=== PATIENT | female | born 1955 | race Native Hawaiian/Other Pacific Islander ===

== ENCOUNTER 2017-09-12 10:26 | Inpatient (IN) | payer OTHER ==
[2017-09-12 10:38] VITALS: BMI 26.6
--- NOTE | 2017-09-12 11:01 | C.PDOC ---
History Of Present Illness Patient is a 62 y/o female who presents to the ED with complaints of persistent vertigo and dizziness for the last 6 days. Patient reports taking antivert this morning at home with no relief. Admits to similar episodes approximately 6 months ago that was relieved with antivert; admits to recent URI 1 month ago in which the patient finished a complete course of Cipro. Patient reports symptoms worsen with position change and notes experiencing associated nausea. No other physical complaints at this time. Time Seen by Provider: 09/12/17 10:44 Chief Complaint (Nursing): Dizziness/Lightheaded History Per: Patient History/Exam Limitations: no limitations Onset/Duration Of Symptoms: Hrs (this morning) Current Symptoms Are (Timing): Still Present Fall Associated With With Symptoms: No Recent travel outside of the [place]: No Additional History Per: Patient Past Medical History Reviewed: Historical Data, Nursing Documentation, Vital Signs Vital Signs: Last Vital Signs Temp 97.9 F 09/12/17 13:27 Pulse 60 09/12/17 13:27 Resp 16 09/12/17 13:27 BP 139/76 09/12/17 13:27 Pulse Ox 100 09/12/17 14:02 - Medical History PMH: Depression, HTN, Hypercholesterolemia, Hyperlipidemia Surgical History: No Surg Hx Family History: States: No Known Family Hx - Social History Hx Alcohol Use: No Hx Substance Use: No Review Of Systems Constitutional: Negative for: Fever, Chills Gastrointestinal: Positive for: Nausea Neurological: Positive for: Dizziness Physical Exam - Physical Exam Appears: Well, Non-toxic, No Acute Distress Skin: Normal Color, Warm, Dry Head: Atraumatic, Normacephalic Oral Mucosa: Moist Chest: Symmetrical Cardiovascular: Rhythm Regular, No Murmur Respiratory: Normal Breath Sounds, No Rales, No Rhonchi, No Wheezing Gastrointestinal/Abdominal: Soft, No Tenderness Neurological/Psych: Oriented x3, Normal Speech, Normal Cognition, Other (no focal deficits) ED Course And Treatment - Laboratory Results Result Diagrams: 09/12/17 11:47 09/12/17 11:47 ECG: Interpreted By Me ECG Rhythm: Sinus Rhythm ECG Interpretation: Normal Rate From EC O2 Sat by Pulse Oximetry: 100 (Room air) Pulse Ox Interpretation: Normal - CT Scan/US Head Other Rad Studies (CT/US): Interpreted By Me CT/US Interpretation: IMPRESSION: Mild chronic microvascular ischemic changes. If focal neurological deficit persists, consider MRI. Progress Note: Dr. Carpenter called at 1:[address] Carpenter second call out at 1:37 pm. - Physician Consult Information Time Consulting Physician Contacted: 13:55 Physician Contacted: Ran Carpenter Outcome Of Conversation: patient to be admitted under Dr. Carpenter. Progress - Re-Evaluation Re-evaluation Note: 09/12/17 13:14 CO PERSIST VERTIGO. +IMBALANCE W RIGHT HEAD TURN, UNABLE TO SIT UPRIGHT. NO FOCAL CEREB DEF. PT OFFERED KELLY MANEUVER BUT REFUSED. PT UNSAFE DC, UNIMPROVED W ANTIVERT AND BENZO. PENDING CALLBACK PMD ALSO CO HOOD. REQUESTING MOTRIN "LIKE I ALWAYS TAKE". REFUSING TYLENOL. 09/12/17 13:54 D/W DR CARPENTER WILL ADMIT CONSULT MARTI ALLRED AND LAVERNE. ADMIT TELE 09/12/17 14:02 - Data Reviewed Data Reviewed: Lab, Diagnostic imaging, EKG Medical Decision Making Medical Decision Making: Plan: * Heat CT * BMP * Valium * Zofran Disposition Counseled Patient/Family Regarding: Studies Performed, Diagnosis - Disposition Disposition: HOSPITALIZED Disposition Time: 14:01 Condition: STABLE Forms: [facility] (Montenegrin) - POA Present On Arrival: Falls Or Trauma - Clinical Impression Clinical Impression: Vertigo, Difficulty walking - Scribe Statement The provider has reviewed the documentation as recorded by the Scribe Elodia Maradiaga All medical record entries made by the Scribe were at my direction and personally dictated by me. I have reviewed the chart and agree that the record accurately reflects my personal performance of the history, physical exam, medical decision making, and the department course for this patient. I have also personally directed, reviewed, and agree with the discharge instructions and disposition. Decision To Admit - Pt Status Changed To: Hospital Disposition Of: Observation - . Bed Request Type: Telemetry Admitting Physician: Ran Carpenter Patient Diagnosis: Vertigo, Difficulty walking
[2017-09-12 11:50] LABS: BASO # 0.1 K/uL (0.0-0.2); EOS # 0.1 K/uL (0.0-0.7); EOS % 1.4 % (0.0-4.0); LYMPH # 2.9 K/uL (1.0-4.3); LYMPH % 34.5 % (20.0-40.0); MEAN CELL VOLUME 86.8 fL (81.0-99.0); MEAN CORPUSCULAR HEMOGLOBIN 28.4 pg (27.0-31.0); MEAN CORPUSCULAR HGB CONC 32.7 g/dL (33.0-37.0); MEAN PLATELET VOLUME 7.7 fL (7.2-11.7); MONO # 0.5 K/uL (0.0-0.8); MONO % 5.8 % (0.0-10.0); RED CELL DISTRIBUTION WIDTH 13.7 % (11.5-14.5); WHITE BLOOD COUNT 8.3 K/uL (4.8-10.8)
[2017-09-12 12:06] LABS: BLOOD UREA NITROGEN 14 mg/dL (7-17); CALCIUM 9.7 mg/dl (8.6-10.4); CARBON DIOXIDE 26 mmol/L (22-30); CHLORIDE 102 mmol/L (98-107); GFR AFRICAN-AMERICAN > 60; GLUCOSE,RANDOM 93 mg/dL (65-105); POTASSIUM 4.4 mmol/L (3.6-5.2); SODIUM 140 mmol/L (132-148)
--- NOTE | 2017-09-12 12:52 | CT ---
PROCEDURE: CT HEAD WITHOUT CONTRAST. HISTORY: VERTIGO COMPARISON: None available. TECHNIQUE: Axial computed tomography images were obtained through the head/brain without intravenous contrast. Radiation dose: Total exam DLP = 1042 mGy-cm. This CT exam was performed using one or more of the following dose reduction techniques: Automated exposure control, adjustment of the mA and/or kV according to patient size, and/or use of iterative reconstruction technique. FINDINGS: HEMORRHAGE: No intracranial hemorrhage. BRAIN: No mass effect or edema. Scattered focal lucencies in the subcortical and periventricular white matter suggestive for chronic microvascular ischemic change. VENTRICLES: Unremarkable. No hydrocephalus. CALVARIUM: Unremarkable. PARANASAL SINUSES: Unremarkable as visualized. No significant inflammatory changes. MASTOID AIR CELLS: Unremarkable as visualized. No inflammatory changes. OTHER FINDINGS: None. IMPRESSION: Mild chronic microvascular ischemic changes. If focal neurologic deficit persists, consider MRI.
--- NOTE | 2017-09-12 14:21 | RAD ---
PROCEDURE: CHEST RADIOGRAPH, 1 VIEW HISTORY: Medical clearance COMPARISON: None available. FINDINGS: LUNGS: No focal infiltrate or effusion. Small nodular density at the left lung base likely represents prominent nipple shadow. PLEURA: No pneumothorax or pleural fluid seen. CARDIOVASCULAR: Normal. OSSEOUS STRUCTURES: No significant abnormalities. VISUALIZED UPPER ABDOMEN: Normal. OTHER FINDINGS: None. IMPRESSION: No focal infiltrate or effusion. Small nodular density at the left lung base likely represents prominent nipple shadow.
--- NOTE | 2017-09-13 17:03 | CP.PCM.CON ---
History of Present Illness - History of Present Illness History of Present Illness: Mrs. Gupta is a 62-year-old woman with a past medical history of hypertension, smoking and dyslipidemia who states that about 6 months ago she had an episode of vertigo that responded to a few doses of meclizine. For the last 6 days, she has been vertiginous again, but this time her symptoms are not responding to meclizine and she states that her symptoms are worse when she turns her head to the right. Review of Systems - Review of Systems All systems: reviewed and no additional remarkable complaints except Past Patient History - Past Medical History & Family History Past Medical History?: Yes - Past Social History Smoking Status: Light Smoker < 10 Cigarettes Daily - CARDIAC Hx Cardiac Disorders: Yes Hx Hypercholesterolemia: Yes Hx Hypertension: Yes - PULMONARY Hx Respiratory Disorders: No - NEUROLOGICAL Hx Neurological Disorder: Yes Hx Dizziness: Yes Hx Vertigo: Yes - HEENT Hx HEENT Problems: No - RENAL Hx Chronic Kidney Disease: No - ENDOCRINE/METABOLIC Hx Endocrine Disorders: No - HEMATOLOGICAL/ONCOLOGICAL Hx Blood Disorders: No - INTEGUMENTARY Hx Dermatological Problems: No - MUSCULOSKELETAL/RHEUMATOLOGICAL Hx Musculoskeletal Disorders: No Hx Falls: No - GASTROINTESTINAL Hx Gastrointestinal Disorders: No - GENITOURINARY/GYNECOLOGICAL Hx Genitourinary Disorders: No - PSYCHIATRIC Hx Psychophysiologic Disorder: Yes Hx Depression: Yes Hx Substance Use: No - SURGICAL HISTORY Hx Surgeries: Yes Hx Section: Yes (X3) - ANESTHESIA Hx Anesthesia: Yes Hx Anesthesia Reactions: No Hx Malignant Hyperthermia: No Has any member of the family had a problem w/ anesthesia?: No Meds Allergies/Adverse Reactions: Allergies Allergy/AdvReac Type Severity Reaction Status Date / Time aspirin Allergy RASH Verified 09/12/17 10:38 tetracycline [From Sumycin] Allergy RASH Verified 09/12/17 10:38 Tetracyclines Allergy ANGIOEDEMA Verified 09/12/17 10:38 - Medications Medications: Current Medications Amlodipine Besylate (Norvasc) 10 mg PO DAILY [facility] Last Admin: 09/13/17 10:09 Dose: 10 mg Diazepam (Valium) 2 mg PO Q12 PRN PRN Reason: Dizziness Fenofibrate (Tricor) 48 mg PO QPM [facility] Home Med (Patient's Own Medication) 1 tab PO DAILY [facility] Last Admin: 09/13/17 10:09 Dose: 1 tab Lamotrigine (Lamictal) 100 mg PO 1900 [facility] Losartan Potassium (Cozaar) 100 mg PO DAILY [facility] Last Admin: 09/13/17 10:09 Dose: 100 mg Meclizine HCl (Antivert) 25 mg PO BID PRN PRN Reason: Dizziness Last Admin: 09/13/17 08:27 Dose: 25 mg Sertraline HCl (Zoloft) 100 mg PO 1900 [facility] Physical Exam - Constitutional Appears: Well - Head Exam Head Exam: ATRAUMATIC, NORMAL INSPECTION, NORMOCEPHALIC - Eye Exam Eye Exam: EOMI, Normal appearance, PERRL - ENT Exam ENT Exam: Mucous Membranes Moist, Normal Exam - Neck Exam Neck exam: Positive for: Normal Inspection - Respiratory Exam Respiratory Exam: Clear to Auscultation Bilateral, NORMAL BREATHING PATTERN - Cardiovascular Exam Cardiovascular Exam: REGULAR RHYTHM - GI/Abdominal Exam GI & Abdominal Exam: Normal Bowel Sounds, Soft. absent: Tenderness - Rectal Exam Rectal Exam: Deferred - Extremities Exam Extremities exam: Positive for: normal inspection - Back Exam Back exam: NORMAL INSPECTION - Neurological Exam Neurological exam: Abnormal Gait, Alert, CN II-XII Intact, Oriented x3, Reflexes Normal Additional comments: No nystagmus noted on lateral gaze. Nannette-Hallpike was positive when head was turned to the right. No ataxia was noted on FTN or HTS. Strength and sensation were symmetrical throughout. Reflexes were normal throughout. Plantar response was downgoing. - Psychiatric Exam Psychiatric exam: Normal Affect, Normal Mood - Skin Skin Exam: Dry, Intact, Normal Color, Warm Results - Vital Signs Recent Vital Signs: Last Vital Signs Temp 98.1 F 09/13/17 12:00 Pulse 60 09/13/17 14:35 Resp 14 09/13/17 14:35 BP 109/64 09/13/17 14:35 Pulse Ox 98 09/13/17 10:10 - Labs Result Diagrams: 09/12/17 11:47 09/12/17 11:47 - Imaging and Cardiology CT scan - head Status: Image reviewed by me, Report reviewed by me (No acute findings on CT head. ) Assessment & Plan (1) Vertigo Assessment and Plan: Based on the history and presentation, the patient likely has benign positional paroxysmal vertigo. However, posterior circualation ischemia or vertebro- basilar insufficiency should be ruled out. I recommend the followin. MRI of the brain and MRA of the head/neck without contrast 2. Telemetry 3. Valium 2 mg PO Q12 hours PRN vertigo 4. Aspirin 81 mg daily 5. Permissive hypertension (treat BP if higher than 180/100 mm Hg) 6. Fluids with NS at 100 mL/hr 7. PT/OT eval and VESTIBULAR REHAB 8. DVT Px 9. Check lipids, HbA1c, B12, Folate, TSH 10 Case management consult Thank you. Status: Acute Priority: High
[2017-09-14] MEDS ORDERED: Gadodiamide 287 MG/ML VIAL (15ML) IV ONE (09:55)
--- NOTE | 2017-09-14 11:13 | CP.PCM.PN ---
Subjective - Date & Time of Evaluation Date of Evaluation: 09/14/17 Time of Evaluation: 11:10 - Subjective Subjective: Ms. Gupta was seen and examined at the bedside. She is alert, oriented in all spheres. She claims of minimal headache 2/10, pressure-like, generalized, but with severe vertigo 8/10 with blurred vision. She denies any nausea or vomiting. There was no untoward events overnight. Objective - Vital Signs/Intake and Output Vital Signs (last 24 hours): Temp Pulse Resp BP Pulse Ox 98.0 F 60 16 112/70 100 09/14/17 06:00 09/14/17 08:22 09/14/17 06:00 09/14/17 06:00 09/14/17 06:00 - Medications Medications: Current Medications Amlodipine Besylate (Norvasc) 10 mg PO DAILY [facility] Last Admin: 09/13/17 10:09 Dose: 10 mg Diazepam (Valium) 2 mg PO Q12 PRN PRN Reason: Dizziness Fenofibrate (Tricor) 48 mg PO QPM [facility] Last Admin: 09/13/17 18:21 Dose: 48 mg Home Med (Patient's Own Medication) 1 tab PO DAILY [facility] Last Admin: 09/13/17 10:09 Dose: 1 tab Lamotrigine (Lamictal) 100 mg PO 1900 [facility] Last Admin: 09/13/17 18:17 Dose: 100 mg Losartan Potassium (Cozaar) 100 mg PO DAILY [facility] Last Admin: 09/13/17 10:09 Dose: 100 mg Sertraline HCl (Zoloft) 100 mg PO 1900 [facility] Last Admin: 09/13/17 18:16 Dose: 100 mg - Labs Labs: 09/12/17 11:47 09/12/17 11:47 - Constitutional Appears: No Acute Distress - Head Exam Head Exam: ATRAUMATIC - Neurological Exam Neurological Exam: Alert, Awake, CN II-XII Intact, Oriented x3 Neuro motor strength exam: Left Upper Extremity: 5, Right Upper Extremity: 5, Left Lower Extremity: 5, Right Lower Extremity: 5 Additional comments: She is alert, oriented in all spheres. She follows commands. Sensation remains intact. Assessment and Plan (1) Vertigo Assessment & Plan: Case discussed with Dr. Rivera, recommends valium 2 mg PO Q 12 PRN and PT/ OT eval and treat for vestibular rehab. follow up MRI of the brain and CTA of head and neck. Status: Acute
--- NOTE | 2017-09-14 12:36 | MRI ---
PROCEDURE: MRI BRAIN WITH AND WITHOUT CONTRAST HISTORY: DIZZINESS COMPARISON: None. TECHNIQUE: Multiplanar, multisequence MR images of the brain were obtained with and without intravenous contrast enhancement. 14 cc of Omniscan FINDINGS: HEMORRHAGE: None DWI: No evidence of an acute or early subacute infarction. BRAIN PARENCHYMA: No mass,mass effect or edema. No atrophy or chronic microvascular ischemic changes. ENHANCEMENT: No abnormal intracranial enhancement. VENTRICLES: Unremarkable. No hydrocephalus. CRANIUM: Unremarkable. ORBITS: Grossly unremarkable. PARANASAL SINUSES/MASTOIDS: Clear VASCULAR SYSTEM: Skull base flow voids intact. OTHER FINDINGS: None . IMPRESSION: Unremarkable pre and post contrast enhanced MRI of the brain.
--- NOTE | 2017-09-14 12:37 | MRI ---
PROCEDURE: Magnetic Resonance Angiography Brain HISTORY: DIZZINESS COMPARISON: None available. TECHNIQUE: 3D time of flight MR angiography of the intracranial arteries was performed. Rotating maximum intensity projection images were generated. FINDINGS: INTERNAL CAROTID ARTERIES: Unremarkable. The skull base, petrous, cavernous and supraclinoid segments are bilaterally widely patient. ANTERIOR CEREBRAL ARTERIES: Unremarkable. A1 and A2 segments are widely patent. Smaller distal branches unremarkable, as visualized. MIDDLE CEREBRAL ARTERIES: Unremarkable. M1 and M2 segments are widely patent. Perisylvian branches grossly symmetric. POSTERIOR CIRCULATION: Basilar Artery: Unremarkable. Distal Vertebral Arteries: Unremarkable. Posterior Cerebral Arteries: Unremarkable. Posterior Inferior Cerebellar Arteries: Unremarkable. ANEURYSM/ VASCULAR MALFORMATIONS: None. OTHER FINDINGS: None. IMPRESSION: Unremarkable MR angiography of the brain.
--- NOTE | 2017-09-14 12:40 | MRI ---
PROCEDURE: MR Angiography of the neck without contrast HISTORY: DIZZINESS COMPARISON: None available. TECHNIQUE: 3D Axzy-ib-[id number] angiography of the neck was performed. Rotating maximum intensity projection images of the cervical carotid and vertebral arteries were generated. The origins of the common carotid arteries were not visualized, which is a limitation inherent to the non-contrast time of flight technique. FINDINGS: RIGHT CAROTID ARTERIES: Common Carotid Artery: Normal. Carotid Bifurcation: Normal. Internal Carotid Artery:Normal. External Carotid Artery (proximal branches): Normal. LEFT CAROTID ARTERIES: Common Carotid Artery: Normal. Carotid Bifurcation: Normal. Internal Carotid Artery:Normal. External Carotid Artery (proximal branches): Normal. VERTEBRAL ARTERIES: Right Vertebral Artery: Normal. Left Vertebral Artery: Normal. OTHER FINDINGS: None. IMPRESSION: No significant stenosis
--- NOTE | 2017-09-14 18:04 | CARD ---
APPROVED REPORT EKG Measurement Heart [id number] <Conclusion> Normal sinus rhythm Normal Electrocardiogram
--- NOTE | 2017-09-14 22:48 | CP.PCM.HP ---
History of Present Illness - History of Present Illness History of Present Illness: CC: vertigo HPI: Patient is a 62 y/o woman who presents to the ED with complaints of persistent vertigo and dizziness for the last 6 days. Patient reports taking antivert this morning at home with no relief. Admits to similar episodes approximately 6 months ago that was relieved with antivert; admits to recent URI 1 month ago in which the patient finished a complete course of Cipro. Patient reports symptoms worsen with position change and notes experiencing associated nausea. No other physical complaints at this time. Present on Admission - Present on Admission Any Indicators Present on Admission: No History of DVT/PE: No History of Uncontrolled Diabetes: No Urinary Catheter: No Decubitus Ulcer Present: No Review of Systems - Neurological Neurological: Paresthesias, Vertigo Past Patient History - Past Medical History & Family History Past Medical History?: Yes - Past Social History Smoking Status: Light Smoker < 10 Cigarettes Daily - CARDIAC Hx Cardiac Disorders: Yes Hx Hypercholesterolemia: Yes Hx Hypertension: Yes - PULMONARY Hx Respiratory Disorders: No - NEUROLOGICAL Hx Neurological Disorder: Yes Hx Dizziness: Yes Hx Vertigo: Yes - HEENT Hx HEENT Problems: No - RENAL Hx Chronic Kidney Disease: No - ENDOCRINE/METABOLIC Hx Endocrine Disorders: No - HEMATOLOGICAL/ONCOLOGICAL Hx Blood Disorders: No - INTEGUMENTARY Hx Dermatological Problems: No - MUSCULOSKELETAL/RHEUMATOLOGICAL Hx Musculoskeletal Disorders: No Hx Falls: No - GASTROINTESTINAL Hx Gastrointestinal Disorders: No - GENITOURINARY/GYNECOLOGICAL Hx Genitourinary Disorders: No - PSYCHIATRIC Hx Psychophysiologic Disorder: Yes Hx Depression: Yes Hx Substance Use: No - SURGICAL HISTORY Hx Surgeries: Yes Hx Section: Yes (X3) - ANESTHESIA Hx Anesthesia: Yes Hx Anesthesia Reactions: No Hx Malignant Hyperthermia: No Has any member of the family had a problem w/ anesthesia?: No Meds Allergies/Adverse Reactions: Allergies Allergy/AdvReac Type Severity Reaction Status Date / Time aspirin Allergy RASH Verified 09/12/17 10:38 tetracycline [From Sumycin] Allergy RASH Verified 09/12/17 10:38 Tetracyclines Allergy ANGIOEDEMA Verified 09/12/17 10:38 Physical Exam - Constitutional Appears: Non-toxic - Head Exam Head Exam: NORMAL INSPECTION - Eye Exam Eye Exam: absent: Scleral icterus - ENT Exam ENT Exam: Mucous Membranes Moist - Neck Exam Neck exam: Positive for: Full Rom. Negative for: Lymphadenopathy - Respiratory Exam Respiratory Exam: NORMAL BREATHING PATTERN - Cardiovascular Exam Cardiovascular Exam: REGULAR RHYTHM - GI/Abdominal Exam GI & Abdominal Exam: Normal Bowel Sounds, Soft. absent: Tenderness - Extremities Exam Extremities exam: Negative for: calf tenderness, tenderness - Neurological Exam Neurological exam: Alert, Oriented x3 Results - Vital Signs Recent Vital Signs: Last Vital Signs Temp 98.4 F 09/14/17 20:00 Pulse 64 09/14/17 20:00 Resp 18 09/14/17 20:00 BP 117/65 09/14/17 20:00 Pulse Ox 100 09/14/17 20:00 - Labs Result Diagrams: 09/12/17 11:47 09/12/17 11:47 Assessment & Plan - Assessment and Plan (Free Text) Assessment: Vertigo? etiology to be determine HTN Depression Plan: Neuro consult MRI of the Head - Date & Time Date: 09/12/17 Time: 15:00 Decision To Admit - . Bed Request Type: ICU
--- NOTE | 2017-09-14 23:03 | CP.PCM.PN ---
Subjective - Date & Time of Evaluation Date of Evaluation: 09/13/17 Time of Evaluation: 19:15 - Subjective Subjective: seen by neuro - input well appreciated still with on and off vertigo Objective - Vital Signs/Intake and Output Vital Signs (last 24 hours): Temp Pulse Resp BP Pulse Ox 98.4 F 64 18 117/65 100 09/14/17 20:00 09/14/17 20:00 09/14/17 20:00 09/14/17 20:00 09/14/17 20:00 Intake and Output: 09/14/17 09/15/17 18:59 06:59 Intake Total 450 Output Total 650 Balance -200 - Medications Medications: Current Medications Amlodipine Besylate (Norvasc) 10 mg PO DAILY [facility] Last Admin: 09/14/17 11:17 Dose: 10 mg Diazepam (Valium) 2 mg PO Q12 PRN PRN Reason: Dizziness Last Admin: 09/14/17 12:08 Dose: 2 mg Fenofibrate (Tricor) 48 mg PO QPM [facility] Last Admin: 09/14/17 18:25 Dose: 48 mg Home Med (Patient's Own Medication) 1 tab PO DAILY [facility] Last Admin: 09/14/17 11:17 Dose: 1 tab Lamotrigine (Lamictal) 100 mg PO 1900 [facility] Last Admin: 09/14/17 18:25 Dose: 100 mg Losartan Potassium (Cozaar) 100 mg PO DAILY@1900 [facility] Last Admin: 09/14/17 18:26 Dose: 100 mg Sertraline HCl (Zoloft) 100 mg PO 1900 [facility] Last Admin: 09/14/17 18:25 Dose: 100 mg - Labs Labs: 09/12/17 11:47 09/12/17 11:47 - Constitutional Appears: Non-toxic - Head Exam Head Exam: NORMOCEPHALIC - Eye Exam Eye Exam: absent: Scleral icterus - ENT Exam ENT Exam: Mucous Membranes Moist - Neck Exam Neck Exam: Full ROM - Respiratory Exam Respiratory Exam: NORMAL BREATHING PATTERN - Cardiovascular Exam Cardiovascular Exam: REGULAR RHYTHM - GI/Abdominal Exam GI & Abdominal Exam: Soft. absent: Tenderness - Extremities Exam Extremities Exam: Pedal Edema, Tenderness - Neurological Exam Neurological Exam: Alert, Oriented x3 Assessment and Plan - Assessment and Plan (Free Text) Assessment: Vertigo ? HTN Plan: Neuro work - up in progress
--- NOTE | 2017-09-14 23:08 | CP.PCM.PN ---
Subjective - Date & Time of Evaluation Date of Evaluation: 09/14/17 Time of Evaluation: 10:15 - Subjective Subjective: Pt still experiencing vertigo no chest pain no palpitations Objective - Vital Signs/Intake and Output Vital Signs (last 24 hours): Temp Pulse Resp BP Pulse Ox 98.4 F 64 18 117/65 100 09/14/17 20:00 09/14/17 20:00 09/14/17 20:00 09/14/17 20:00 09/14/17 20:00 Intake and Output: 09/14/17 09/15/17 18:59 06:59 Intake Total 450 Output Total 650 Balance -200 - Medications Medications: Current Medications Amlodipine Besylate (Norvasc) 10 mg PO DAILY [facility] Last Admin: 09/14/17 11:17 Dose: 10 mg Diazepam (Valium) 2 mg PO Q12 PRN PRN Reason: Dizziness Last Admin: 09/14/17 12:08 Dose: 2 mg Fenofibrate (Tricor) 48 mg PO QPM [facility] Last Admin: 09/14/17 18:25 Dose: 48 mg Home Med (Patient's Own Medication) 1 tab PO DAILY [facility] Last Admin: 09/14/17 11:17 Dose: 1 tab Lamotrigine (Lamictal) 100 mg PO 1900 [facility] Last Admin: 09/14/17 18:25 Dose: 100 mg Losartan Potassium (Cozaar) 100 mg PO DAILY@1900 [facility] Last Admin: 09/14/17 18:26 Dose: 100 mg Sertraline HCl (Zoloft) 100 mg PO 1900 [facility] Last Admin: 09/14/17 18:25 Dose: 100 mg - Labs Labs: 09/12/17 11:47 09/12/17 11:47 - Constitutional Appears: Non-toxic - Head Exam Head Exam: NORMAL INSPECTION - Eye Exam Eye Exam: absent: Scleral icterus - ENT Exam ENT Exam: Mucous Membranes Moist - Neck Exam Neck Exam: Full ROM - Cardiovascular Exam Cardiovascular Exam: REGULAR RHYTHM - GI/Abdominal Exam GI & Abdominal Exam: Soft. absent: Rigid - Extremities Exam Extremities Exam: absent: Calf Tenderness, Pedal Edema - Neurological Exam Neurological Exam: Alert, Oriented x3 Assessment and Plan - Assessment and Plan (Free Text) Assessment: Vertigo HTN Plan: ENT consult w/ Dr Pace Neuro work up
--- NOTE | 2017-09-15 00:25 | CON ---
PSYCHIATRIC CONSULTATION DATE: 09/14/2017 CHIEF COMPLAINT AND REASON FOR CONSULTATION: The patient is referred by Dr. Vera for evaluation. The patient is well known to me, have a history of depression, anxiety and on multiple psych meds. HISTORY OF PRESENT ILLNESS: The patient is a 62-year-old female with history of depression, anxiety and multiple psych meds. The patient came to the emergency room complaining of persistent vertigo and dizziness for the last few days. She said she took Antivert this morning with no relief. The patient had history of vertigo. Few months ago, she did mention that she had this episode which was short-lived, was seeing me in my office and responded well to the Antivert. According to her, she took Antivert twice and it did not respond. The patient also reports she just came back from the [facility], where she was there for vacation with a friend. She said that she did not get sick in the [facility]. She is not complaining of ringing of the ears or any kind of viral syndrome but just concerned with the episode of vertigo, especially she said that with the change of position. The patient is currently went for neuro workup and had head MRA, brain MRI, and CAT scan of the head, the results were all within normal range. The patient is seen today. She is still complaining of vertigo but has been complaint with her meds. The patient was taking Trintellix 10 mg in the morning, sertraline 100 mg at bedtime, also lamotrigine 100 mg at bedtime. She has been compliant with her medication. PAST PSYCHIATRIC HISTORY: History of depression and anxiety, on Zoloft, Lamictal and Trintellix. No suicidal history. No prior inpatient treatment. ALLERGIES: ALLERGIC TO ASPIRIN, TETRACYCLINE. DRUG AND ALCOHOL HISTORY: Denies any. PSYCHOSOCIAL HISTORY: The patient lives with her friend. She works in [employer]. CURRENT MEDICATIONS: Zartan 100 mg daily, Norvasc 10 mg daily. The patient states that she was taking beta-ifeanyi at home with 50 mg, we will discontinue it. The patient also at home was taking Klonopin 1 mg p.o. bedtime p.r.n., but now the patient is on Valium 2 mg q.12 p.r.n. and Zoloft 100 mg at bedtime as well as Lamictal 100 mg at bedtime. The patient reports that lately according to her PMD, Dr. Vera, we adjusted her hypertension meds and patient reports that the last few days she has been running very low blood pressure. The patient used to have high blood pressure, which she was asymptomatic. The patient used to run at 140,150,160 or even 200 range when she comes to my office systole, but according to her, her blood pressure have been running the 100s and to 110 and 120 systolic which she said. With a drop of her blood pressure, she seems to be getting lightheaded. According to her, Dr. Vera readjusted her meds. PHYSICAL EXAMINATION: VITAL SIGNS: Temperature 97.8, pulse rate is 69, blood pressure is 129/54, respirations 20, oxygen sat is 100%. REVIEW OF SYSTEMS: GENERAL: The patient is alert, oriented x3, seen in her room, still complaining of vertigo. SKIN: No diaphoresis. HEENT: As stated she has vertigo. No blurring of vision. No headache. NECK: Supple. RESPIRATORY: No dyspnea. CARDIOVASCULAR: No chest pain. GASTROINTESTINAL: No nausea. No vomiting. EXTREMITIES: The patient has a steady gait. MUSCULOSKELETAL: Feels weak. NEUROLOGIC: Alert and oriented x3. GENITOURINARY: No dysuria. The patient have been seen conversing in [facility] with her doctor. MENTAL STATUS EXAMINATION: Well-developed female, looks her stated age, oriented x3, conversing in [facility]. Speech is spontaneous. Affect is reactive. The patient is seen by Neurology, the diagnosis of possible benign positional vertigo. Affect as stated. Speech is spontaneous. Affect is reactive. Mood is anxious at times. Thought process coherent. Thought content; no overt psychosis, no suicidal ideation. Attention and memory seems to be fair. Insight and judgment are fair. Impulse control is fair. IMPRESSION: History of recurrent depression, anxiety as well as possibly benign positional vertigo versus drug induced. PLAN AND RECOMMENDATIONS: The patient is seen, meds reviewed. Continue present psych meds. We will keep her with the Lamictal 100 mg at bedtime as well as the sertraline 100 mg at bedtime and also the Trintellix 10 mg at bedtime. The patient used to take Klonopin but now she has been given Valium by the neurologist 2 mg p.o. q.12 is advised for her to take. The patient was advised to discuss with Dr. Vera about her blood pressure medications. She states that she was taking Norvasc, metoprolol, losartan at home, and the patient was complaining her blood pressure were very low. The patient used to have high systolic blood pressure before, but according to her, her blood pressure seems to go much lower than this before which could contribute to her dizziness. They have told the patient she has to discuss with Dr. Vera and monitor her blood pressure. Psych zeng, we will continue her present psych meds, continue workup. The patient is doing neuro workup. Continue treatment plan as outlined. Thank you for the consult. Velasquez Anders MD
--- NOTE | 2017-09-15 07:59 | CP.PCM.PN ---
Subjective - Date & Time of Evaluation Date of Evaluation: 09/15/17 Time of Evaluation: 07:51 - Subjective Subjective: Ms. Gee was seen and examined at the bedside. She is alert, oriented in all spheres. She complains of severe vertigo especially with movement to her right. She further states of the room is spinning with her repositioning. She received two doses of valium yesterday and some relief. She also states of having poor appetite due to her dizziness. She also claims of experiencing minimal headache 3/10 in her parietal area, non-radiating. She denies any nausea, vomiting, numbness.There was no untoward events overnight. Objective - Vital Signs/Intake and Output Vital Signs (last 24 hours): Temp Pulse Resp BP Pulse Ox 98.5 F 69 18 108/65 100 09/15/17 04:00 09/15/17 04:00 09/15/17 04:00 09/15/17 04:00 09/14/17 20:00 - Medications Medications: Current Medications Amlodipine Besylate (Norvasc) 10 mg PO DAILY [facility] Last Admin: 09/14/17 11:17 Dose: 10 mg Diazepam (Valium) 2 mg PO Q12 PRN PRN Reason: Dizziness Last Admin: 09/14/17 23:35 Dose: 2 mg Fenofibrate (Tricor) 48 mg PO QPM [facility] Last Admin: 09/14/17 18:25 Dose: 48 mg Home Med (Patient's Own Medication) 1 tab PO DAILY [facility] Last Admin: 09/14/17 11:17 Dose: 1 tab Lamotrigine (Lamictal) 100 mg PO 1900 [facility] Last Admin: 09/14/17 18:25 Dose: 100 mg Losartan Potassium (Cozaar) 100 mg PO DAILY@1900 [facility] Last Admin: 09/14/17 18:26 Dose: 100 mg Sertraline HCl (Zoloft) 100 mg PO 1900 [facility] Last Admin: 09/14/17 18:25 Dose: 100 mg - Labs Labs: 09/12/17 11:47 09/12/17 11:47 - Constitutional Appears: No Acute Distress - Head Exam Head Exam: ATRAUMATIC - Neurological Exam Neurological Exam: Alert, Awake, Oriented x3 Neuro motor strength exam: Left Upper Extremity: 5, Right Upper Extremity: 5, Left Lower Extremity: 5, Right Lower Extremity: 5 Additional comments: She answer questions appropriately and follow commands. Sensation is intact. Assessment and Plan (1) Vertigo Assessment & Plan: Case discussed with Dr. Rivera, will start with IVF of lactated ringers 100 ml/ hr and pPermissive hypertension (treat BP if higher than 180/100 mm Hg). Follow up with physical therapy regarding vestibular rehab. Status: Acute
[2017-09-15] MEDS: Lactated Ringer's 1,000 ML IV SCH ×3 (10:00→21:00)
[2017-09-15] MEDS: Enoxaparin 40 mg Syringe SC SCH (11:40)
--- NOTE | 2017-09-15 13:02 | CP.PCM.PN ---
Subjective - Date & Time of Evaluation Date of Evaluation: 09/15/17 Time of Evaluation: 12:58 - Subjective Subjective: see below Objective - Vital Signs/Intake and Output Vital Signs (last 24 hours): Temp Pulse Resp BP Pulse Ox 98.3 F 72 18 128/59 L 100 09/15/17 08:00 09/15/17 11:55 09/15/17 11:55 09/15/17 11:55 09/14/17 20:00 Intake and Output: 09/15/17 09/15/17 06:59 18:59 Intake Total 380 Output Total 200 Balance 180 - Medications Medications: Current Medications Amlodipine Besylate (Norvasc) 10 mg PO DAILY [facility] Last Admin: 09/15/17 10:25 Dose: 10 mg Diazepam (Valium) 2 mg PO Q12 PRN PRN Reason: Dizziness Last Admin: 09/14/17 23:35 Dose: 2 mg Enoxaparin Sodium (Lovenox) 40 mg SC DAILY [facility] Last Admin: 09/15/17 11:40 Dose: 40 mg Fenofibrate (Tricor) 48 mg PO QPM [facility] Last Admin: 09/14/17 18:25 Dose: 48 mg Home Med (Patient's Own Medication) 1 tab PO DAILY [facility] Last Admin: 09/15/17 10:25 Dose: 1 tab Lactated Ringer's (Lactated Ringer's) 1,000 mls @ 100 mls/hr IV .Q10H [facility] Last Admin: 09/15/17 10:00 Dose: 100 mls/hr Lamotrigine (Lamictal) 100 mg PO 1900 [facility] Last Admin: 09/14/17 18:25 Dose: 100 mg Losartan Potassium (Cozaar) 100 mg PO DAILY@1900 [facility] Last Admin: 09/14/17 18:26 Dose: 100 mg Sertraline HCl (Zoloft) 100 mg PO 1900 [facility] Last Admin: 09/14/17 18:25 Dose: 100 mg - Labs Labs: 09/12/17 11:47 09/12/17 11:47 Assessment and Plan - Assessment and Plan (Free Text) Assessment: ENT Consult HPI 2 days of intermittent vertigo associated with rapid head movement. in between episodes she feels imbalanced. she had similar problem 6 months ago that self resolved. no ear ringing, aural fullness or change in her hearing, although she thinks she has hearing loss in general. she was admitted for medical w/u. PMH HTN, high cholesterol, depression Allergies ASA, tetracycline Review of Systems see HPI Exam awake, alert, comfortable face symmetric (there is slight lower left facial asymmetry that is long- standing and due to surgery there to remove mole years ago). both ear canals, tm's and middle ears are clear oc/op clear neck soft, no LAD, trachea midline MRI normal Impression dizziness most c/w BPPV Recommend o/p f/u for hearing test and further w/u slow head movements medical/neuro w/u underway this was d/w patient
--- NOTE | 2017-09-15 13:17 | PN ---
DATE: 09/15/2017 SUBJECTIVE: Patient is seen. Patient is still complaining of vertigo, is seen today but feeling better. She took some Valium. Patient's blood pressure seems to be controlled with meds, but seems to be in the low side. Patient made aware that her psych medication can cross-react with her hypertensive meds and this may cause her blood pressure to be in the low side. Patient is on losartan, also on amlodipine, also taking Valium and has been compliant with meds and also taking Trintellix. PHYSICAL EXAMINATION: GENERAL: The patient is alert and oriented x3, feeling weak, still dizzy. SKIN: No diaphoresis. HEENT: Complaining of vertigo, exaggerated by movements. No blurring of vision. NECK: Supple. RESPIRATORY: No dyspnea. CARDIOVASCULAR: No chest pain. GASTROINTESTINAL: No nausea. No vomiting. EXTREMITIES: Gait is unsteady. MUSCULOSKELETAL: Feels weak. NEUROLOGIC: Alert and oriented x3. GENITOURINARY: No dysuria. MENTAL STATUS EXAMINATION: Well-developed female, looks her stated age, oriented x3. Mood is still anxious. Affect is reactive. Speech is spontaneous. Thought process coherent. Thought content, patient is concerned about her vertigo. Patient is diagnosed by Neuro of benign positional vertigo. Patient was referred to be seen by the ENT for the vertigo. No psychosis. No suicidal or homicidal ideation. Attention and memory seem to be fair. Insight and judgment are fair. Impulse control is fair. IMPRESSION: History of recurrent depression, anxiety as well as benign positional vertigo, hypertension. PLAN AND RECOMMENDATIONS: The patient is seen, meds reviewed. Continue present psych meds. Patient was advised to discuss with her PMD, Dr. Vera, if her hypertensive meds can be titrated or lowered because patient is complaining that she is still dizzy and she has vertigo and her psych meds are reinforcing the hypotensive action of hypertensive meds. Continue treatment plan as outlined. Also, monitor her vital signs as needed, fall precautions. Velasquez Anders MD
[2017-09-16 03:36] VITALS: BP 115/58; RESP 15
[2017-09-16] MEDS: Lactated Ringer's 1,000 ML IV SCH ×2 (04:05→07:39)
[2017-09-16 06:49] LABS: CHOLESTEROL 207 mg/dL (0-199)
[2017-09-16 07:42] LABS: BLOOD UREA NITROGEN 14 mg/dL (7-17); CALCIUM 8.8 mg/dl (8.6-10.4); CARBON DIOXIDE 22 mmol/L (22-30); CHLORIDE 103 mmol/L (98-107); GFR AFRICAN-AMERICAN > 60; GLUCOSE,RANDOM 80 mg/dL (65-105); SODIUM 137 mmol/L (132-148)
[2017-09-16 07:43] VITALS: TEMP 98; O2SAT 98
--- NOTE | 2017-09-16 07:56 | CP.PCM.PN ---
Subjective - Date & Time of Evaluation Date of Evaluation: 09/16/17 Time of Evaluation: 07:51 - Subjective Subjective: Ms. Ramirez was seen and examined at the bedside. She is alert, oriented in all spheres. She verbalizes that with fluids, valium, and physical therapy it helped relieved majority of her vertigo. She denies any headache,nausea, or vomiting. There was no untoward events overnight. Objective - Vital Signs/Intake and Output Vital Signs (last 24 hours): Temp Pulse Resp BP Pulse Ox 98 F 85 15 115/58 L 98 09/16/17 04:00 09/16/17 02:00 09/16/17 02:00 09/16/17 00:23 09/16/17 04:00 Intake and Output: 09/16/17 09/16/17 06:59 18:59 Intake Total 1700 Output Total 900 Balance 800 - Medications Medications: Current Medications Amlodipine Besylate (Norvasc) 10 mg PO DAILY [facility] Diazepam (Valium) 2 mg PO Q12 PRN PRN Reason: Dizziness Last Admin: 09/15/17 13:16 Dose: 2 mg Enoxaparin Sodium (Lovenox) 40 mg SC DAILY [facility] Last Admin: 09/15/17 11:40 Dose: 40 mg Fenofibrate (Tricor) 48 mg PO QPM [facility] Last Admin: 09/15/17 18:30 Dose: 48 mg Home Med (Patient's Own Medication) 1 tab PO DAILY [facility] Last Admin: 09/15/17 10:25 Dose: 1 tab Lactated Ringer's (Lactated Ringer's) 1,000 mls @ 100 mls/hr IV .Q10H [facility] Last Admin: 09/16/17 07:39 Dose: 100 mls/hr Lamotrigine (Lamictal) 100 mg PO 1900 [facility] Last Admin: 09/15/17 18:30 Dose: 100 mg Losartan Potassium (Cozaar) 100 mg PO DAILY [facility] Sertraline HCl (Zoloft) 100 mg PO 1900 [facility] Last Admin: 09/15/17 18:30 Dose: 100 mg - Labs Labs: 09/12/17 11:47 09/16/17 06:26 - Constitutional Appears: No Acute Distress - Head Exam Head Exam: ATRAUMATIC - Neurological Exam Neurological Exam: Alert, Awake, Oriented x3 Neuro motor strength exam: Left Upper Extremity: 5, Right Upper Extremity: 5, Left Lower Extremity: 5, Right Lower Extremity: 5 Additional comments: Neurological improved from previous examination. Assessment and Plan (1) Vertigo Assessment & Plan: Case discussed with Dr. Rivera, continue all current medical, physical, and occupational therapies. Recommends permissive hypertension (treat BP if higher than 180/100 mm Hg). Follow up with physical therapy regarding vestibular rehab. Status: Acute
--- NOTE | 2017-09-16 09:45 | CP.PCM.PN ---
Subjective - Date & Time of Evaluation Date of Evaluation: 09/15/17 Time of Evaluation: 08:45 - Subjective Subjective: less vertigo, most likely positional NAD no tinitus Objective - Vital Signs/Intake and Output Vital Signs (last 24 hours): Temp Pulse Resp BP Pulse Ox 98 F 85 15 115/58 L 98 09/16/17 04:00 09/16/17 02:00 09/16/17 02:00 09/16/17 00:23 09/16/17 04:00 Intake and Output: 09/16/17 09/16/17 06:59 18:59 Intake Total 1800 Output Total 900 Balance 900 - Medications Medications: Current Medications Amlodipine Besylate (Norvasc) 10 mg PO DAILY [facility] Diazepam (Valium) 2 mg PO Q12 PRN PRN Reason: Dizziness Last Admin: 09/15/17 13:16 Dose: 2 mg Enoxaparin Sodium (Lovenox) 40 mg SC DAILY [facility] Last Admin: 09/15/17 11:40 Dose: 40 mg Fenofibrate (Tricor) 48 mg PO QPM [facility] Last Admin: 09/15/17 18:30 Dose: 48 mg Home Med (Patient's Own Medication) 1 tab PO DAILY [facility] Last Admin: 09/15/17 10:25 Dose: 1 tab Lactated Ringer's (Lactated Ringer's) 1,000 mls @ 100 mls/hr IV .Q10H [facility] Last Admin: 09/16/17 07:39 Dose: 100 mls/hr Lamotrigine (Lamictal) 100 mg PO 1900 [facility] Last Admin: 09/15/17 18:30 Dose: 100 mg Losartan Potassium (Cozaar) 100 mg PO DAILY [facility] Sertraline HCl (Zoloft) 100 mg PO 1900 [facility] Last Admin: 09/15/17 18:30 Dose: 100 mg - Labs Labs: 09/12/17 11:47 09/16/17 06:26 - Constitutional Appears: Non-toxic - Head Exam Head Exam: NORMOCEPHALIC - Eye Exam Eye Exam: absent: Scleral icterus - ENT Exam ENT Exam: Mucous Membranes Moist - Neck Exam Neck Exam: Full ROM - Respiratory Exam Respiratory Exam: NORMAL BREATHING PATTERN - Cardiovascular Exam Cardiovascular Exam: REGULAR RHYTHM - GI/Abdominal Exam GI & Abdominal Exam: Soft. absent: Tenderness - Rectal Exam Rectal Exam: NORMAL INSPECTION - Extremities Exam Extremities Exam: Calf Tenderness. absent: Pedal Edema - Neurological Exam Neurological Exam: Alert, CN II-XII Intact Assessment and Plan - Assessment and Plan (Free Text) Assessment: Vertigo HTN Lipid disorder Plan: Cont meds ENT consult
[2017-09-16] MEDS: Enoxaparin 40 mg Syringe SC SCH (09:46)
--- NOTE | 2017-09-16 09:49 | CP.PCM.PN ---
Subjective - Date & Time of Evaluation Date of Evaluation: 09/16/17 Time of Evaluation: 09:47 - Subjective Subjective: no vertigo no nausea or vomitting Objective - Vital Signs/Intake and Output Vital Signs (last 24 hours): Temp Pulse Resp BP Pulse Ox 98 F 85 15 115/58 L 98 09/16/17 04:00 09/16/17 02:00 09/16/17 02:00 09/16/17 00:23 09/16/17 04:00 Intake and Output: 09/16/17 09/16/17 06:59 18:59 Intake Total 1800 Output Total 900 Balance 900 - Medications Medications: Current Medications Amlodipine Besylate (Norvasc) 10 mg PO DAILY [facility] Diazepam (Valium) 2 mg PO Q12 PRN PRN Reason: Dizziness Last Admin: 09/15/17 13:16 Dose: 2 mg Enoxaparin Sodium (Lovenox) 40 mg SC DAILY [facility] Last Admin: 09/16/17 09:46 Dose: 40 mg Fenofibrate (Tricor) 48 mg PO QPM [facility] Last Admin: 09/15/17 18:30 Dose: 48 mg Home Med (Patient's Own Medication) 1 tab PO DAILY [facility] Last Admin: 09/15/17 10:25 Dose: 1 tab Lactated Ringer's (Lactated Ringer's) 1,000 mls @ 100 mls/hr IV .Q10H [facility] Last Admin: 09/16/17 07:39 Dose: 100 mls/hr Lamotrigine (Lamictal) 100 mg PO 1900 [facility] Last Admin: 09/15/17 18:30 Dose: 100 mg Losartan Potassium (Cozaar) 100 mg PO DAILY [facility] Sertraline HCl (Zoloft) 100 mg PO 1900 [facility] Last Admin: 09/15/17 18:30 Dose: 100 mg - Labs Labs: 09/12/17 11:47 09/16/17 06:26 - Constitutional Appears: Non-toxic - Eye Exam Eye Exam: absent: Scleral icterus - Neck Exam Neck Exam: Full ROM - Respiratory Exam Respiratory Exam: NORMAL BREATHING PATTERN - Cardiovascular Exam Cardiovascular Exam: REGULAR RHYTHM - GI/Abdominal Exam GI & Abdominal Exam: Soft. absent: Rigid - Extremities Exam Extremities Exam: Pedal Edema. absent: Calf Tenderness - Neurological Exam Neurological Exam: Alert, Oriented x3 Assessment and Plan - Assessment and Plan (Free Text) Assessment: Vertigo HTN Depression Plan: Ok to DC Office in 5 days Cont meds
[2017-09-16 12:12] VITALS: PULSE 68
--- NOTE | 2017-09-16 13:44 | PN ---
DATE: 09/16/2017 SUBJECTIVE: The patient is seen. The patient is feeling much better. She wants to go home today. Vertigo is improving. The patient seems to be tolerating recent change of her BP meds together with her psych meds. The patient is asking for prescription of her Valium p.r.n. prior to discharge and advised to follow up in my office in a week. PHYSICAL EXAMINATION VITAL SIGNS: Seems to be stable. Temperature is 98, pulse rate is 68, blood pressure is 115/58, respirations 16, oxygen sats 98%. PSYCHIATRIC MEDICATIONS: The patient is currently taking Trintellix 10 mg daily, Lamictal 100 mg at bedtime, Zoloft 100 mg at bedtime. REVIEW OF SYSTEMS: CONSTITUTIONAL: The patient is alert x 3, anxious to be discharged. She says she is feeling much better. The patient advised to take a few days off before returning to work at [employer]. SKIN: No diaphoresis. HEENT: Vertigo improving and no blurring of vision or dizziness. RESPIRATORY: No dyspnea. CARDIOVASCULAR: No chest pain. GASTROINTESTINAL: No nausea, no vomiting. MUSCULOSKELETAL: Feels weak. EXTREMITIES: Gait is unsteady at times. NEUROLOGIC: Alert, oriented x 3. GENITOURINARY: No dysuria MENTAL STATUS EXAMINATION: A well-developed female of [place] descent, oriented x 3, seen with her daughter, conversing in [employer], the patient wants to go home. The patient lives with her friend. Mood is anxious at times. Affect is reactive. Speech is spontaneous. Thought process is coherent. Thought content, no overt psychosis. No suicidal ideations. According to her, her primary care doctor, Dr. Vera, gave the clearance for her to go home. The patient advised to follow up in my office in one week. No psychosis. No suicidal or homicidal ideation. Attention and memory is fair. Insight and judgment fair. Impulse control is fair. IMPRESSION: History of recurrent depression and anxiety, benign positional vertigo. PLAN AND RECOMMENDATION: The patient is seen. Medications reviewed. Psych zeng, the patient is stable to be discharged today. Follow up with her PMD. I will give her prescription for her Valium 2 mg twice a day p.r.n., which was originally prescribed by Dr. Rivera. The patient had been taking Klonopin at home, but now taking Valium and seems to be tolerating better. The patient has enough meds of her Lamictal and Zoloft. Advised to follow up in my office in one week. Psych zeng, she is stable for discharge to home once medically cleared. Velasquez Anders MD [place]
== END 2017-09-16 13:30 | disposition home or self-care (01) | DRG 65 ==
LOC: C.ER 10:26 → C.9E 14:02 → C.9I 19:15 → OBSVTOIN 09-14 10:52
PROVIDERS: ADMIT Internal Medicine; ATTEND Internal Medicine
DX: H81.10 Benign paroxysmal vertigo, unspecified ear (principal); F33.9 Major depressive disorder, recurrent, unspecified; I10 Essential (primary) hypertension; E78.5 Hyperlipidemia, unspecified; Z87.891 Personal history of nicotine dependence

== ENCOUNTER 2018-12-06 20:36 | Inpatient (IN) | payer OTHER ==
[2018-12-06 20:36] VITALS: BMI 26.6
--- NOTE | 2018-12-06 20:55 | C.PDOC ---
History Of Present Illness 63 year old female presents to the ED c/o dizziness, headache that has been worsening for the past week. Patient states her blood pressure was elevated, saw her PMD who adjusted her blood pressure. Patient still states feeling dizzy and having difficulty walking. Patient states she has similar episode of vertigo 2 years ago. Patient reports she had some chest pain which has seen resolved. Patient denies fever, chills, nausea, vomit, diarrhea, visual changes, palpitations, rash, weakness, numbness. Time Seen by Provider: 12/06/18 20:54 Chief Complaint (Nursing): Chest Pain History Per: Patient History/Exam Limitations: no limitations Onset/Duration Of Symptoms: Hrs Current Symptoms Are (Timing): Still Present Context: Other Severity: Moderate Pain Scale Rating Of: 4 Quality: Dull Modifying Factors: None Exacerbating Factors: None Alleviating Factors: None Recent travel outside of the [place]: No Additional History Per: Patient Past Medical History Reviewed: Historical Data, Nursing Documentation, Vital Signs Vital Signs: Last Vital Signs Temp 97.8 F 12/06/18 20:41 Pulse 83 12/06/18 20:41 Resp 16 12/06/18 20:41 BP 175/79 H 12/06/18 20:41 Pulse Ox 97 12/06/18 20:41 - Medical History PMH: Depression, HTN, Hypercholesterolemia, Hyperlipidemia Denies: Chronic Kidney Disease Surgical History: No Surg Hx Family History: States: No Known Family Hx - Social History Hx Alcohol Use: No Hx Substance Use: No Review Of Systems Constitutional: Negative for: Fever, Chills Eyes: Negative for: Vision Change ENT: Negative for: Throat Pain Cardiovascular: Positive for: Chest Pain. Negative for: Palpitations Respiratory: Negative for: Shortness of Breath Gastrointestinal: Negative for: Nausea, Vomiting, Abdominal Pain Musculoskeletal: Negative for: Back Pain Skin: Negative for: Rash Neurological: Positive for: Headache, Dizziness. Negative for: Weakness, Numbness Psych: Negative for: Anxiety Physical Exam - Physical Exam Appears: Non-toxic, No Acute Distress Skin: Warm, Dry Head: Normacephalic Eye(s): bilateral: Normal Inspection, PERRL, EOMI Oral Mucosa: Moist Neck: Supple Chest: Symmetrical Cardiovascular: Rhythm Regular Respiratory: No Rales, No Rhonchi, No Wheezing Gastrointestinal/Abdominal: Soft, No Tenderness, No Guarding, No Rebound Back: Normal Inspection Extremity: Normal ROM Extremity: Bilateral: Atraumatic, Normal Color And Temperature, Normal ROM Neurological/Psych: Oriented x3, Normal Speech, Normal Cognition, No Romberg, Other (no nystagmus, non focal) Gait: Unsteady ED Course And Treatment - Laboratory Results Result Diagrams: 12/06/18 21:22 12/06/18 21:22 ECG: Interpreted By Me, Viewed By Me ECG Rhythm: Sinus Rhythm (73), Nonspecific Changes O2 Sat by Pulse Oximetry: 97 (ON RA) Pulse Ox Interpretation: Normal - Radiology CXR: Interpreted by Me, Viewed By Me CXR Interpretation: No: Infiltrates, Fracture, Pnemothorax Progress Note: Plan: - CT head. - EKG. - CXR. - Labs. - Antivert 25 mg PO. - UA. Patient was not given aspirin due to her aspirin allergy Disposition Discussed With : Ran Vera Comment: accepted the pt on his service and took over the care at 1:59AM Doctor Will See Patient In The: Hospital Counseled Patient/Family Regarding: Studies Performed, Diagnosis - Disposition Disposition: HOSPITALIZED Disposition Time: 01:59 Condition: FAIR Forms: [employer] ([place]) - POA Present On Arrival: Poor Glycemic Control - Clinical Impression Clinical Impression: Chest pain, Vertigo, Difficulty walking, Dizziness - Scribe Statement The provider has reviewed the documentation as recorded by the Scribe Kwabena Garcia All medical record entries made by the Scribe were at my direction and personally dictated by me. I have reviewed the chart and agree that the record accurately reflects my personal performance of the history, physical exam, medical decision making, and the department course for this patient. I have also personally directed, reviewed, and agree with the discharge instructions and disposition. Decision To Admit - Pt Status Changed To: Hospital Disposition Of: Inpatient - Admit Certification Admit to Inpatient:: After my assessment, the patient will require hospitalization for at least two midnights. This is because of the severity of symptoms shown, intensity of services needed, and/or the medical risk in this patient being treated as an outpatient. - InPatient: Physician Admission Certification: I certify that this patient requires 2 or mor e midnights of care for the following reason:: After my assessment, the patient will require hospitalization for at least two midnights. This is because of the severity of symptoms shown, intensity of services needed, and/or the medical risk in this patient being treated as an outpatient. - . Bed Request Type: Telemetry Admitting Physician: Ran Vera Patient Diagnosis: Chest pain, Vertigo, Difficulty walking, Dizziness
[2018-12-06 21:34] LABS: BASO # 0.1 K/uL (0.0-0.2); BASO % 1.3 % (0.0-2.0); EOS # 0.2 K/uL (0.0-0.7); HEMOGLOBIN 13.1 g/dL (11.0-16.0); LYMPH # 2.2 K/uL (1.0-4.3); MEAN CORPUSCULAR HEMOGLOBIN 29.1 pg (27.0-31.0); MEAN CORPUSCULAR HGB CONC 32.6 g/dL (33.0-37.0); MEAN PLATELET VOLUME 7.7 fL (7.2-11.7); MONO # 0.5 K/uL (0.0-0.8); MONO % 7.2 % (0.0-10.0); NEUT # 3.6 K/uL (1.8-7.0); NEUT % 54.5 % (50.0-75.0); RBC 4.51 Mil/uL (3.80-5.20); RED CELL DISTRIBUTION WIDTH 13.8 % (11.5-14.5); WHITE BLOOD COUNT 6.6 K/uL (4.8-10.8)
[2018-12-06 21:36] LABS: MEAN CELL VOLUME 89.2 fL (81.0-99.0)
[2018-12-06 21:45] LABS: PROTHROMBIN TIME 10.7 SECONDS (9.7-12.2)
[2018-12-06 21:47] LABS: ALB/GLOB RATIO 1.6 (1.0-2.1); ALBUMIN 4.9 g/dL (3.5-5.0); ALT/SGPT 15 U/L (9-52); AST/SGOT 24 U/L (14-36); BLOOD UREA NITROGEN 16 mg/dL (7-17); CALCIUM 9.8 mg/dl (8.6-10.4); GFR NON-AFRICAN AMERICAN 46
[2018-12-06 21:59] LABS: B-TYPE NATRIURETIC PEPTIDE 12.1 pg/mL (0-900)
[2018-12-07 03:09] LABS: URINE BILIRUBIN NEGATIVE (NEGATIVE); URINE CLARITY Clear (Clear); URINE COLOR YELLOW (YELLOW); URINE GLUCOSE (UA) NEGATIVE (Normal)
[2018-12-07 03:10] LABS: SQUAMOUS EPITHIAL 1 /hpf (0-5); URINE AMORPHOUS SEDIMENT RARE /ul (<OCC); URINE BLOOD NEGATIVE (NEGATIVE); URINE LEUKOCYTE ESTERASE NEGATIVE Leu/uL (Negative); URINE PROTEIN NEGATIVE (NEGATIVE); URINE UROBILINOGEN 0.2 mg/dL (0.2-1.0)
--- NOTE | 2018-12-07 07:19 | CP.PCM.CON ---
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 ARB/ACEI ABSTINENCE FROM SMOKING ANTIVERT PRN Past Patient History - Past Medical History & Family History Past Medical History?: Yes - Past Social History Smoking Status: Light Smoker < 10 Cigarettes Daily - CARDIAC Hx Hypercholesterolemia: Yes Hx Hypertension: Yes - PULMONARY Hx Respiratory Disorders: No - NEUROLOGICAL Hx Neurological Disorder: Yes Hx Dizziness: Yes Hx Vertigo: Yes - HEENT Hx HEENT Problems: No - RENAL Hx Chronic Kidney Disease: No - ENDOCRINE/METABOLIC Hx Endocrine Disorders: No - HEMATOLOGICAL/ONCOLOGICAL Hx Blood Disorders: No - INTEGUMENTARY Hx Dermatological Problems: No - MUSCULOSKELETAL/RHEUMATOLOGICAL Hx Musculoskeletal Disorders: No Hx Falls: No (unsteady gait) - GASTROINTESTINAL Hx Gastrointestinal Disorders: No - GENITOURINARY/GYNECOLOGICAL Hx Genitourinary Disorders: No - PSYCHIATRIC Hx Depression: Yes Hx Substance Use: No - SURGICAL HISTORY Hx Surgeries: Yes Hx Section: Yes (X4) - ANESTHESIA Hx Anesthesia: Yes Hx Anesthesia Reactions: No Hx Malignant Hyperthermia: No Meds Allergies/Adverse Reactions: Allergies Allergy/AdvReac Type Severity Reaction Status Date / Time aspirin Allergy RASH Verified 12/07/18 02:30 Penicillins Allergy Verified 12/07/18 02:30 tetracycline [From Sumycin] Allergy RASH Verified 12/07/18 02:30 Tetracyclines Allergy ANGIOEDEMA Verified 12/07/18 02:30 - Medications Medications: Current Medications Clopidogrel Bisulfate (Plavix) 75 mg PO DAILY [facility] Home Med (Fenofibrate Nanocrystallized [Fenofibrate]) 160 mg PO DAILY [facility] Lamotrigine (Lamictal) 100 mg PO DAILY [facility] Sertraline HCl (Zoloft) 100 mg PO DAILY [facility] Results - Vital Signs Recent Vital Signs: Last Vital Signs Temp 98.0 F 12/07/18 02:41 Pulse 66 12/07/18 03:00 Resp 18 12/07/18 02:41 BP 151/77 H 12/07/18 02:41 Pulse Ox 98 12/07/18 02:41 - Labs Result Diagrams: 12/06/18 21:22 12/06/18 21:22 Labs: Laboratory Results - last 24 hr 12/06/18 12/06/18 12/06/18 21:22 21:22 21:22 WBC 6.6 RBC 4.51 Hgb 13.1 Hct 40.2 MCV 89.2 D MCH 29.1 MCHC 32.6 L RDW 13.8 Plt Count 361 MPV 7.7 Neut % (Auto) 54.5 Lymph % (Auto) 34.0 [place] % (Auto) 7.2 Eos % (Auto) 3.0 Baso % (Auto) 1.3 Neut # (Auto) 3.6 Lymph # (Auto) 2.2 [place] # (Auto) 0.5 Eos # (Auto) 0.2 Baso # (Auto) 0.1 PT 10.7 INR 1.0 APTT 38 H Sodium 141 Potassium 3.6 Chloride 103 Carbon Dioxide 30 Anion Gap 12 BUN 16 Creatinine 1.2 Est GFR ( Amer) 55 Est GFR (Non-Af Amer) 46 Random Glucose 143 H D Calcium 9.8 Total Bilirubin 0.3 AST 24 ALT 15 Alkaline Phosphatase 48 Total Creatine Kinase CK-MB (Mass) Troponin I < 0.0120 NT-Pro-B Natriuret Pep 12.1 Total Protein 8.0 Albumin 4.9 Globulin 3.1 Albumin/Globulin Ratio 1.6 Urine Color Urine Clarity Urine pH Ur Specific [place] Urine Protein Urine Glucose (UA) Urine Ketones Urine Blood Urine Nitrate Urine Bilirubin Urine Urobilinogen Ur Leukocyte Esterase Urine WBC (Auto) Urine RBC (Auto) Ur Squamous Epith Cells Amorphous Sediment 12/07/18 12/07/18 02:56 05:41 WBC RBC Hgb Hct MCV MCH MCHC RDW Plt Count MPV Neut % (Auto) Lymph % (Auto) [place] % (Auto) Eos % (Auto) Baso % (Auto) Neut # (Auto) Lymph # (Auto) [place] # (Auto) Eos # (Auto) Baso # (Auto) PT INR APTT Sodium Potassium Chloride Carbon Dioxide Anion Gap BUN Creatinine Est GFR ( Amer) Est GFR (Non-Af Amer) Random Glucose Calcium Total Bilirubin AST ALT Alkaline Phosphatase Total Creatine Kinase 42 CK-MB (Mass) 0.30 Troponin I < 0.0120 NT-Pro-B Natriuret Pep Total Protein Albumin Globulin Albumin/Globulin Ratio Urine Color Yellow Urine Clarity Clear Urine pH 7.0 Ur Specific [place] 1.010 Urine Protein Negative Urine Glucose (UA) Negative Urine Ketones Negative Urine Blood Negative Urine Nitrate Negative Urine Bilirubin Negative Urine Urobilinogen 0.2 Ur Leukocyte Esterase Negative Urine WBC (Auto) 2 Urine RBC (Auto) 1 Ur Squamous Epith Cells 1 Amorphous Sediment Rare H
[2018-12-07 08:10] LABS: HDL CHOLESTEROL 60 mg/dL (30-70)
[2018-12-07 08:29] LABS: LDL CHOLESTEROL 125 mg/dL (0-129)
--- NOTE | 2018-12-07 08:29 | CT ---
Date of service: 12/06/2018 PROCEDURE: CT HEAD WITHOUT CONTRAST. HISTORY: vertigo COMPARISON: 09/12/2017 TECHNIQUE: Axial computed tomography images were obtained through the head/brain without intravenous contrast. Radiation dose: Total exam DLP = 1154.6 mGy-cm. This CT exam was performed using one or more of the following dose reduction techniques: Automated exposure control, adjustment of the mA and/or kV according to patient size, and/or use of iterative reconstruction technique. FINDINGS: HEMORRHAGE: No intracranial hemorrhage. BRAIN: No mass effect or edema. Scattered focal lucencies in the subcortical and periventricular white matter suggestive for chronic microvascular ischemic change. VENTRICLES: Unremarkable. No hydrocephalus. CALVARIUM: Unremarkable. PARANASAL SINUSES: Unremarkable as visualized. No significant inflammatory changes. MASTOID AIR CELLS: Unremarkable as visualized. No inflammatory changes. OTHER FINDINGS: None. IMPRESSION: No acute intracranial abnormality. If symptoms persists, consider correlation with MRI. A preliminary report was generated at 10:17 p.m. on 12/06/[address] Abel Box from [facility].
[2018-12-07 08:32] LABS: FREE T4 1.14 ng/dL (0.78-2.19)
--- NOTE | 2018-12-07 08:32 | RAD ---
Date of service: 12/06/2018 PROCEDURE: CHEST RADIOGRAPH, 1 VIEW HISTORY: Chest pain COMPARISON: None available. FINDINGS: LUNGS: The lungs are well inflated and clear. PLEURA: No pneumothorax or pleural effusion. CARDIOVASCULAR: The heart is normal in size. No aortic atherosclerotic calcifications present. OSSEOUS STRUCTURES: Within normal limits for the patient's age. VISUALIZED UPPER ABDOMEN: Normal. OTHER FINDINGS: None. IMPRESSION: No active pulmonary disease.
[2018-12-07 09:22] LABS: FOLATE > 20.0 ng/mL
[2018-12-07] MEDS ORDERED: VORTIOXETINE HYDROBROMIDE 10 MG PO SCH (10:00)
[2018-12-07] MEDS: AMLODIPINE PO SCH (11:04)
[2018-12-07] MEDS: OLMESARTAN PO SCH (11:04)
--- NOTE | 2018-12-07 11:06 | MRI ---
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 FINDINGS: HEMORRHAGE: None DWI: No evidence of an acute or early subacute infarction. BRAIN PARENCHYMA: Durán-white matter differentiation is preserved. There is no mass, mass effect or abnormal extra-axial fluid collection. There is no territorial infarction. The midline sagittal structures are normal. VENTRICLES: There is moderate age advanced global parenchymal volume loss and proportionate enlargement of the ventricles and cortical sulci. CRANIUM: There is normal bone marrow signal pattern. ORBITS: Grossly unremarkable. PARANASAL SINUSES/MASTOIDS: Predominantly clear VASCULAR SYSTEM: There are normal signal voids in the larger intracranial arteries. OTHER FINDINGS: None. IMPRESSION: No acute intracranial abnormality. Moderate age advanced global parenchymal volume loss.
[2018-12-07 14:25] LABS: CK-MB 0.29 ng/mL (0.0-3.38)
--- NOTE | 2018-12-07 18:40 | CON ---
DATE: 12/07/2018 LOCATION: Room #569, Bed A. REASON FOR CONSULTATION: Dizziness. CHIEF COMPLAINT: The patient was admitted with history of subacute process of dizziness for the last 2 weeks. The dizziness is associated with headache and chest discomfort. From a neurological point of view, I was called in to evaluate her further management. HISTORY OF PRESENT ILLNESS: Ms. Qian Gupta is a 63-year-old moderately built, right-handed [place] female presenting with two and a half weeks' history of lightheadedness associating with vertiginous feeling and nausea. The symptoms are associating with headache, blurred vision and chest discomfort. She had a similar episode that happened two years ago, however these symptoms were somewhat entirely different than before. These symptoms are also worse when changing her position either lying on her right side or left recumbent position. She denies any double vision. No bowel or bladder discomfort. No focal weakness. She walks independently. No hearing loss. PAST MEDICAL HISTORY: Hypertension, dyslipidemia, psychiatric illness and insomnia. REVIEW OF SYSTEMS: 12-point system being reviewed dizziness. MEDICATIONS: Lamotrigine, sertraline, clonazepam on a p.r.n. basis, hydralazine, Bystolic, amlodipine, and Trintellix. PHYSICAL EXAMINATION: VITAL SIGNS: Blood pressure 151/77, mean artery pressure of 101, respiratory rate 18, pulse rate 73 regular, and temperature 98.8 degrees Fahrenheit. NECK: Supple. No carotid bruits. HEART: Sounds regular. LUNGS: Fair air entry. EXTREMITIES: No edema in legs. NEUROLOGICAL EXAMINATION: Mental status examination: She is awake, alert and or to person, place and time. Speech is clear. Naming, repetition, fluency, comprehension all within normal. Cranial nerve examination: Visual field intact. Pupils reactive. Extraocular movement normal. No nystagmus. No facial sensory deficit. Mild facial asymmetry manifesting as flattening of the left nasolabial fold. Hearing is normal. Tongue is midline. Good gag. Motor examination: Outstretched hand with eyes closed, no drift noted. Power is symmetric on either side tendon reflexes biceps, brachialis, triceps 1+ both knees are 2+. Both ankles are trace above. Plantars are downgoing. Sensory examination; Grossly intact. Coordination: Finger-nose test is intact as well. CONCLUSION: On reviewing her medical history and my neurological examination, the patient does have a possible paroxysmal positional vertigo. However, this episode is associating with some ataxia and blurred vision. There is a possibility of BEE ROBBER territory ischemic process because of her underlying risk factors including smoking, overweight and hypertension with dyslipidemia. WORKUP: CT of the head reviewed, no acute pathologies. Blood workup, WBC 6.6, hemoglobin 13.1, hematocrit 40.02, platelet 361. PT is 10.7, INR 1, PTT 38. Sodium 141, potassium 3.6, chloride 103, bicarbonate 30, BUN 16, creatinine 1.3, GFR more than 55, glucose 143. Urinalysis: Rare amorphous sediments. EKG normal sinus rhythm. RECOMMENDATIONS: 1. Blood pressure control. Keep mean artery pressure around 100. 2. Proper hydration. 3. MRI of the brain to rule out any ischemic process. 4. Blood workup as per the order. 5. Abstinence from smoking. 6. She has been taking lamotrigine in the past which has been helping her dizziness as well. Since it has been helping, maybe subclinical seizures should be ruled out. The patient also recommended to have electroencephalogram. Misael Pace MD MTDD
[2018-12-07] MEDS: FENOFIBRATE 160MG TABLET PO SCH (21:40)
[2018-12-07 23:05] LABS: CK-MB < 0.22 ng/mL (0.0-3.38)
[2018-12-08 07:29] LABS: BASO # 0.1 K/uL (0.0-0.2); BASO % 1.2 % (0.0-2.0); EOS # 0.2 K/uL (0.0-0.7); HEMOGLOBIN 12.8 g/dL (11.0-16.0); LYMPH # 2.5 K/uL (1.0-4.3); LYMPH % 40.4 % (20.0-40.0); MEAN CELL VOLUME 88.5 fL (81.0-99.0); MEAN CORPUSCULAR HEMOGLOBIN 29.4 pg (27.0-31.0); MEAN CORPUSCULAR HGB CONC 33.2 g/dL (33.0-37.0); MEAN PLATELET VOLUME 7.7 fL (7.2-11.7); MONO # 0.5 K/uL (0.0-0.8); MONO % 8.5 % (0.0-10.0); NEUT # 2.8 K/uL (1.8-7.0); NEUT % 45.9 % (50.0-75.0); NRBC % 0.1 % (0.0-2.0); RBC 4.36 Mil/uL (3.80-5.20); RED CELL DISTRIBUTION WIDTH 13.2 % (11.5-14.5); WHITE BLOOD COUNT 6.1 K/uL (4.8-10.8)
[2018-12-08 07:52] LABS: ALB/GLOB RATIO 1.4 (1.0-2.1); ALBUMIN 4.3 g/dL (3.5-5.0); ALT/SGPT 26 U/L (9-52); AST/SGOT 25 U/L (14-36); BLOOD UREA NITROGEN 21 mg/dL (7-17); CALCIUM 9.4 mg/dl (8.6-10.4); GFR NON-AFRICAN AMERICAN 56
--- NOTE | 2018-12-08 09:39 | PN ---
DATE: 12/08/2018 TIME OF EVALUATION: 7 o'clock a.m. NEUROLOGICAL PROBLEM: Benign paroxysmal positional vertigo. PHYSICAL EXAMINATION: VITAL SIGNS: Blood pressure 121/68, mean arterial pressure of 85, respiratory rate 18, temperature 97.6 with a pulse rate 64 and regular. The patient is still complaining of positional dizziness. No nausea or vomiting. Ambulatory on her own without any support. The patient also admits on holding the object, the strength is weaker in both hands, associated with tingling and numbness of both hand fingertips. No neck pain. Examination is unchanged when compared with previous examination. The patient is stable with Plavix, she continue the antiplatelets for now. Weight reduction and abstinence from smoking been discussed. The patient should definitely need outpatient electrodiagnostic studies for her carpal tunnel syndrome versus cervical radiculopathy. The patient's condition been discussed with the patient. She agreed with the plan of management. The patient is neurologically stable. The patient can be discharged if medically stable. Misael Pace MD MTDRyan
[2018-12-08] MEDS: AMLODIPINE PO SCH (09:42)
[2018-12-08] MEDS: OLMESARTAN PO SCH (09:42)
--- NOTE | 2018-12-08 11:26 | VASCLAB ---
Date of service: 12/07/2018 PROCEDURE: Carotid Duplex Exam. HISTORY: ASSESS STENOSIS COMPARISON: None available. TECHNIQUE: Grayscale and duplex Doppler evaluation of the cervical carotid and vertebral arteries were performed. The common carotid, carotid bifurcations and cervical Internal Carotid Artery (ICA) and proximal External Carotid Artery (ECA) were evaluated. The vertebral arteries were evaluated for gross patency and flow direction. Report prepared by Johan Villegas, BS, RVT FINDINGS: RIGHT CAROTID ARTERIES: 1. Common Carotid Artery: No significant focal plaque formation of the right common carotid artery. Maximum Peak Systolic velocity: 96 cm/sec: End-diastolic velocity 25 cm/sec. 2. Carotid Bifurcation: plaque formation. Maximum Peak Systolic velocity: 65 cm/sec: End-diastolic velocity 17 cm/sec. 3. Internal Carotid Artery: Plaque description: 3.1. Proximal Segment: Peak systolic velocity 88 cm/sec: End-diastolic velocity 29 cm/sec - % stenosis 0-15% 3.2. Middle Segment: Peak systolic velocity 88 cm/sec: End-diastolic velocity 36 cm/sec - % stenosis 0-15% 3.3. Distal Segment: Peak systolic velocity 61 cm/sec: End-diastolic velocity 19 cm/sec - % stenosis 0-15% 4. External Carotid Artery: No significant focal plaque formation. Peak systolic velocity 62 cm/sec 5. ICA/CCA Ratio: 0.9 LEFT CAROTID ARTERIES: 1. Common Carotid Artery: No significant focal plaque formation of the left common carotid artery. Maximum Peak Systolic velocity: 90 cm/sec: End-diastolic velocity 23 cm/sec. 2. Carotid Bifurcation: plaque formation. Maximum Peak Systolic velocity: 70 cm/sec: End-diastolic velocity 17 cm/sec. 3. Internal Carotid Artery: Plaque description: 3.1. Proximal Segment: Peak systolic velocity 69 cm/sec: End-diastolic velocity 19 cm/sec - % stenosis 0-15% 3.2. Middle Segment: Peak systolic velocity 119 cm/sec: End-diastolic velocity 35 cm/sec - % stenosis 0-15% 3.3. Distal Segment: Peak systolic velocity 106 cm/sec: End-diastolic velocity 29 cm/sec - % stenosis 0-15% 4. External Carotid Artery: No significant focal plaque formation. Peak systolic velocity 88 cm/sec 5. ICA/CCA Ratio: 1.3 VERTEBRAL ARTERIES: 1. Right Vertebral Artery: The right vertebral artery flow direction is antegrade. 2. Left Vertebral Artery: The left vertebral artery flow direction is antegrade. OTHER FINDINGS: 1. Right Brachial Blood pressure: 120 mmHg. 2. Left Brachial Blood pressure: 130 mmHg. 3. No atherosclerotic calcification present IMPRESSION: RIGHT: Duplex scan does not suggest hemodynamically significant stenosis of the right extracranial carotid arteries. LEFT: Duplex scan does not suggest hemodynamically significant stenosis of the left extracranial carotid arteries.
--- NOTE | 2018-12-08 17:58 | CP.PCM.HP ---
History of Present Illness - History of Present Illness History of Present Illness: CC vertigo chest pain HPI 63 year old female presents to the ED c/o dizziness, headache that has been worsening for the past week. Patient states her blood pressure was elevated, saw her PMD who adjusted her blood pressure. Patient still states feeling dizzy and having difficulty walking. Patient states she has similar episode of vertigo 2 years ago. Patient reports she had some chest pain which has seen resolved. Patient denies fever, chills, nausea, vomit, diarrhea, visual changes, palpitations, rash, weakness, numbness Present on Admission - Present on Admission Any Indicators Present on Admission: No History of DVT/PE: No History of Uncontrolled Diabetes: No Review of Systems - Constitutional Constitutional: Daytime Sleepiness, Snoring - EENT Eyes: Blurred Vision Ears: Disequilibrium, Dizziness - Cardiovascular Cardiovascular: Chest Pain, Chest Pain at Rest, Dyspnea on Exertion - Musculoskeletal Musculoskeletal: Arthralgias - Neurological Neurological: Abnormal Gait, Disequilibrium Past Patient History - Past Medical History & Family History Past Medical History?: Yes - Past Social History Smoking Status: Light Smoker < 10 Cigarettes Daily - CARDIAC Hx Hypercholesterolemia: Yes Hx Hypertension: Yes - PULMONARY Hx Respiratory Disorders: No - NEUROLOGICAL Hx Neurological Disorder: Yes Hx Dizziness: Yes Hx Vertigo: Yes - HEENT Hx HEENT Problems: No - RENAL Hx Chronic Kidney Disease: No - ENDOCRINE/METABOLIC Hx Endocrine Disorders: No - HEMATOLOGICAL/ONCOLOGICAL Hx Blood Disorders: No - INTEGUMENTARY Hx Dermatological Problems: No - MUSCULOSKELETAL/RHEUMATOLOGICAL Hx Musculoskeletal Disorders: No Hx Falls: No (unsteady gait) - GASTROINTESTINAL Hx Gastrointestinal Disorders: No - GENITOURINARY/GYNECOLOGICAL Hx Genitourinary Disorders: No - PSYCHIATRIC Hx Depression: Yes Hx Substance Use: No - SURGICAL HISTORY Hx Surgeries: Yes Hx Section: Yes (X4) - ANESTHESIA Hx Anesthesia: Yes Hx Anesthesia Reactions: No Hx Malignant Hyperthermia: No Meds Allergies/Adverse Reactions: Allergies Allergy/AdvReac Type Severity Reaction Status Date / Time aspirin Allergy RASH Verified 12/07/18 02:30 Penicillins Allergy Verified 12/07/18 02:30 tetracycline [From Sumycin] Allergy RASH Verified 12/07/18 02:30 Tetracyclines Allergy ANGIOEDEMA Verified 12/07/18 02:30 Physical Exam - Constitutional Appears: No Acute Distress - Head Exam Head Exam: NORMAL INSPECTION - Eye Exam Eye Exam: absent: Scleral icterus - ENT Exam ENT Exam: Mucous Membranes Moist - Neck Exam Neck exam: Positive for: Full Rom - Respiratory Exam Respiratory Exam: NORMAL BREATHING PATTERN - Cardiovascular Exam Cardiovascular Exam: REGULAR RHYTHM - GI/Abdominal Exam GI & Abdominal Exam: Soft - Extremities Exam Extremities exam: Negative for: pedal edema - Neurological Exam Neurological exam: Alert, Oriented x3 Additional comments: +vertigo +unsteady gait Results - Vital Signs Recent Vital Signs: Last Vital Signs Temp 98.2 F 12/08/18 15:00 Pulse 63 12/08/18 15:47 Resp 20 12/08/18 15:00 BP 112/62 12/08/18 15:00 Pulse Ox 95 12/08/18 15:00 - Labs Result Diagrams: 12/08/18 07:12 12/08/18 07:12 Labs: Laboratory Results - last 24 hr 12/07/18 12/07/18 12/08/18 07:41 22:37 07:12 WBC 6.1 RBC 4.36 Hgb 12.8 Hct 38.6 MCV 88.5 MCH 29.4 MCHC 33.2 RDW 13.2 Plt Count 369 MPV 7.7 Neut % (Auto) 45.9 L Lymph % (Auto) 40.4 H [place] % (Auto) 8.5 Eos % (Auto) 4.0 Baso % (Auto) 1.2 Neut # (Auto) 2.8 Lymph # (Auto) 2.5 [place] # (Auto) 0.5 Eos # (Auto) 0.2 Baso # (Auto) 0.1 Sodium Potassium Chloride Carbon Dioxide Anion Gap BUN Creatinine Est GFR ( Amer) Est GFR (Non-Af Amer) Random Glucose Calcium Total Bilirubin AST ALT Alkaline Phosphatase Total Creatine Kinase 38 CK-MB (Mass) < 0.22 Troponin I < 0.0120 Total Protein Albumin Globulin Albumin/Globulin Ratio Serum Immunofixation Not detected 12/08/18 07:12 WBC RBC Hgb Hct MCV MCH MCHC RDW Plt Count MPV Neut % (Auto) Lymph % (Auto) [place] % (Auto) Eos % (Auto) Baso % (Auto) Neut # (Auto) Lymph # (Auto) [place] # (Auto) Eos # (Auto) Baso # (Auto) Sodium 140 Potassium 3.6 Chloride 104 Carbon Dioxide 28 Anion Gap 11 BUN 21 H Creatinine 1.0 Est GFR ( Amer) > 60 Est GFR (Non-Af Amer) 56 Random Glucose 115 H Calcium 9.4 Total Bilirubin 0.3 AST 25 ALT 26 Alkaline Phosphatase 51 Total Creatine Kinase CK-MB (Mass) Troponin I Total Protein 7.3 Albumin 4.3 Globulin 3.1 Albumin/Globulin Ratio 1.4 Serum Immunofixation Assessment & Plan - Assessment and Plan (Free Text) Assessment: TIA v CVA Unc HTN Chest pain-r/o CAD Plan: Neuro consult w/ Dr Pace Neuro work-up Lexiscan Echo Pulmonary consult with Dr Rojas re: SOLANGE - Date & Time Date: 12/07/18 Time: 07:30
--- NOTE | 2018-12-08 18:54 | CP.PCM.CON ---
History of Present Illness - History of Present Illness History of Present Illness: Patient is a 63 yr old female who presented to the hospital for dizziness associated with chest pain and head ache, her PMH is complicated by HTN, dyslipidemia, depression, insomnia. Pulmonology was consulted to assess for sleep apnea. Patient states that at night she is restless and can't fall asleep till 6-7 am along with excessive snoring. She states she tried to set up a sleep study in the past but did not follow up on this. She had a CPAP but did not use it because "it was just to big." Spoke with patient that after her discharge I will need to see her in my office to coordinate a sleep study. Denies CP, SOB, headache, fever, chills, nausea, vomiting PMH:HTN, dyslipidemia, depression, insomnia PSH: Csection x4 Allergies: Asprin, tetracyclines, penicillins Social: reports tobacco use, denies drugs/alcohol use Meds: as per emr Physical Exam: Gen: AAOx3, no acute distress Cardio: RRR, no murmur Pulm: lungs clear to auscultation bilaterally Abdomen: Soft, non-distended A/P Sleep Apnea -outpatient work up for sleep study and follow up Past Patient History - Past Medical History & Family History Past Medical History?: Yes - Past Social History Smoking Status: Light Smoker < 10 Cigarettes Daily - CARDIAC Hx Hypercholesterolemia: Yes Hx Hypertension: Yes - PULMONARY Hx Respiratory Disorders: No - NEUROLOGICAL Hx Neurological Disorder: Yes Hx Dizziness: Yes Hx Vertigo: Yes - HEENT Hx HEENT Problems: No - RENAL Hx Chronic Kidney Disease: No - ENDOCRINE/METABOLIC Hx Endocrine Disorders: No - HEMATOLOGICAL/ONCOLOGICAL Hx Blood Disorders: No - INTEGUMENTARY Hx Dermatological Problems: No - MUSCULOSKELETAL/RHEUMATOLOGICAL Hx Musculoskeletal Disorders: No Hx Falls: No (unsteady gait) - GASTROINTESTINAL Hx Gastrointestinal Disorders: No - GENITOURINARY/GYNECOLOGICAL Hx Genitourinary Disorders: No - PSYCHIATRIC Hx Depression: Yes Hx Substance Use: No - SURGICAL HISTORY Hx Surgeries: Yes Hx Section: Yes (X4) - ANESTHESIA Hx Anesthesia: Yes Hx Anesthesia Reactions: No Hx Malignant Hyperthermia: No Meds Allergies/Adverse Reactions: Allergies Allergy/AdvReac Type Severity Reaction Status Date / Time aspirin Allergy RASH Verified 12/07/18 02:30 Penicillins Allergy Verified 02/12/19 02:30 tetracycline [From Sumycin] Allergy RASH Verified 12/07/18 02:30 Tetracyclines Allergy ANGIOEDEMA Verified 12/07/18 02:30 - Medications Medications: Current Medications Clonazepam (Klonopin) 0.5 mg PO HS PRN PRN Reason: Anxiety Clopidogrel Bisulfate (Plavix) 75 mg PO DAILY [facility] Last Admin: 12/08/18 09:42 Dose: 75 mg Heparin Sodium (Porcine) (Heparin) 5,000 units SC Q12 [facility] Last Admin: 12/08/18 09:39 Dose: 5,000 units Home Med (Patient's Own Medication) 1 tab PO HS [facility] Last Admin: 12/07/18 21:40 Dose: 1 tab Home Med (Patient's Own Medication) 1 tab PO DAILY [facility] Last Admin: 12/08/18 09:42 Dose: 1 tab Home Med (Vortioxetine Hydrobromide) 10 mg PO DAILY [facility] Hydralazine HCl (Apresoline) 50 mg PO TID [facility] Last Admin: 12/08/18 17:04 Dose: 50 mg Lamotrigine (Lamictal) 100 mg PO DAILY [facility] Last Admin: 12/08/18 09:42 Dose: 100 mg Nebivolol (Bystolic) 5 mg PO DAILY [facility] Last Admin: 12/08/18 09:45 Dose: Not Given Sertraline HCl (Zoloft) 100 mg PO HS [facility] Last Admin: 12/07/18 21:40 Dose: 100 mg Results - Vital Signs Recent Vital Signs: Last Vital Signs Temp 98.2 F 12/08/18 15:00 Pulse 63 12/08/18 15:47 Resp 20 12/08/18 15:00 BP 112/62 12/08/18 15:00 Pulse Ox 95 12/08/18 15:00 - Labs Result Diagrams: 12/08/18 07:12 12/08/18 07:12 Labs: Laboratory Results - last 24 hr 12/07/18 12/07/18 12/08/18 07:41 22:37 07:12 WBC 6.1 RBC 4.36 Hgb 12.8 Hct 38.6 MCV 88.5 MCH 29.4 MCHC 33.2 RDW 13.2 Plt Count 369 MPV 7.7 Neut % (Auto) 45.9 L Lymph % (Auto) 40.4 H [place] % (Auto) 8.5 Eos % (Auto) 4.0 Baso % (Auto) 1.2 Neut # (Auto) 2.8 Lymph # (Auto) 2.5 [place] # (Auto) 0.5 Eos # (Auto) 0.2 Baso # (Auto) 0.1 Sodium Potassium Chloride Carbon Dioxide Anion Gap BUN Creatinine Est GFR ( Amer) Est GFR (Non-Af Amer) Random Glucose Calcium Total Bilirubin AST ALT Alkaline Phosphatase Total Creatine Kinase 38 CK-MB (Mass) < 0.22 Troponin I < 0.0120 Total Protein Albumin Globulin Albumin/Globulin Ratio Serum Immunofixation Not detected 12/08/18 07:12 WBC RBC Hgb Hct MCV MCH MCHC RDW Plt Count MPV Neut % (Auto) Lymph % (Auto) [place] % (Auto) Eos % (Auto) Baso % (Auto) Neut # (Auto) Lymph # (Auto) [place] # (Auto) Eos # (Auto) Baso # (Auto) Sodium 140 Potassium 3.6 Chloride 104 Carbon Dioxide 28 Anion Gap 11 BUN 21 H Creatinine 1.0 Est GFR ( Amer) > 60 Est GFR (Non-Af Amer) 56 Random Glucose 115 H Calcium 9.4 Total Bilirubin 0.3 AST 25 ALT 26 Alkaline Phosphatase 51 Total Creatine Kinase CK-MB (Mass) Troponin I Total Protein 7.3 Albumin 4.3 Globulin 3.1 Albumin/Globulin Ratio 1.4 Serum Immunofixation
[2018-12-08] MEDS: FENOFIBRATE 160MG TABLET PO SCH (21:01)
--- NOTE | 2018-12-09 07:51 | PN ---
DATE: 12/09/2018 TIME OF EVALUATION: 07:05 a.m. NEUROLOGICAL PROBLEM: Benign paroxysmal positional vertigo. VITAL SIGNS: Blood pressure 114/67, mean artery pressure of 82, respiratory rate 18, temperature 98.4 with a pulse rate 54. The patient slept good, awake, alert. Speech is clear. Still having some vertiginous feeling on changing her position. The patient's electroencephalogram was reviewed and normal for her age. Her medication, meclizine can be taken as needed. I encouraged her p.o. fluid and exercise as he has been tolerating. Continue antiplatelets for stroke prophylaxis. Multiple medications from psychiatrist have to be tapered off if it is not necessary. The patient is requested to see me as outpatient for vestibular rehabilitation. The patient will be followed while she is in the hospital. Misael Pace MD
[2018-12-09] MEDS ORDERED: Caffeine Citrated **INJ** 20 MG/ML IV ONE (07:52)
--- NOTE | 2018-12-09 09:00 | CP.PCM.PN ---
Subjective - Date & Time of Evaluation Date of Evaluation: 12/08/18 Time of Evaluation: 09:15 - Subjective Subjective: still with vertigo +atypical/typical chest pain Objective - Vital Signs/Intake and Output Vital Signs (last 24 hours): Temp Pulse Resp BP Pulse Ox 98.4 F 54 L 20 114/67 95 12/08/18 23:00 12/09/18 03:26 12/08/18 23:00 12/08/18 23:00 12/08/18 23:00 Intake and Output: 12/09/18 12/09/18 06:59 18:59 Intake Total 550 Balance 550 - Medications Medications: Current Medications Clonazepam (Klonopin) 0.5 mg PO HS PRN PRN Reason: Anxiety Clopidogrel Bisulfate (Plavix) 75 mg PO DAILY [facility] Last Admin: 12/08/18 09:42 Dose: 75 mg Heparin Sodium (Porcine) (Heparin) 5,000 units SC Q12 [facility] Last Admin: 12/08/18 21:01 Dose: 5,000 units Home Med (Patient's Own Medication) 1 tab PO [facility] Last Admin: 12/08/18 21:01 Dose: 1 tab Home Med (Patient's Own Medication) 1 tab PO DAILY [facility] Last Admin: 12/08/18 09:42 Dose: 1 tab Home Med (Vortioxetine Hydrobromide) 10 mg PO DAILY [facility] Hydralazine HCl (Apresoline) 50 mg PO TID [facility] Last Admin: 12/08/18 17:04 Dose: 50 mg Lamotrigine (Lamictal) 100 mg PO DAILY [facility] Last Admin: 12/08/18 09:42 Dose: 100 mg Nebivolol (Bystolic) 5 mg PO DAILY [facility] Last Admin: 12/08/18 09:45 Dose: Not Given Sertraline HCl (Zoloft) 100 mg PO HS [facility] Last Admin: 12/08/18 21:01 Dose: 100 mg - Labs Labs: 12/08/18 07:12 12/08/18 07:12 PT 10.7 SECONDS (9.7-12.2) 12/06/18 21:22 INR 1.0 12/06/18 21:22 APTT 38 SECONDS (21-34) H 12/06/18 21:22 - Constitutional Appears: Non-toxic - Head Exam Head Exam: NORMAL INSPECTION - Eye Exam Eye Exam: absent: Scleral icterus - ENT Exam ENT Exam: Mucous Membranes Moist - Neck Exam Neck Exam: Full ROM - Respiratory Exam Respiratory Exam: NORMAL BREATHING PATTERN - Cardiovascular Exam Cardiovascular Exam: REGULAR RHYTHM - GI/Abdominal Exam GI & Abdominal Exam: Soft - Extremities Exam Extremities Exam: absent: Pedal Edema - Neurological Exam Neurological Exam: Alert, Oriented x3 Assessment and Plan - Assessment and Plan (Free Text) Assessment: Chest pain Vertigo-? Benign positional HTN Depression Plan: Lexiscan ECHO Neuro follow up
--- NOTE | 2018-12-09 09:09 | CP.PCM.PN ---
Subjective - Date & Time of Evaluation Date of Evaluation: 12/08/18 Time of Evaluation: 09:50 - Subjective Subjective: symptoms persist +vertigo w/ occ nausea Occasional chest pain Objective - Vital Signs/Intake and Output Vital Signs (last 24 hours): Temp Pulse Resp BP Pulse Ox 98.4 F 54 L 20 114/67 95 12/08/18 23:00 12/09/18 03:26 12/08/18 23:00 12/08/18 23:00 12/08/18 23:00 Intake and Output: 12/09/18 12/09/18 06:59 18:59 Intake Total 550 Balance 550 - Medications Medications: Current Medications Clonazepam (Klonopin) 0.5 mg PO HS PRN PRN Reason: Anxiety Clopidogrel Bisulfate (Plavix) 75 mg PO DAILY [facility] Last Admin: 12/08/18 09:42 Dose: 75 mg Heparin Sodium (Porcine) (Heparin) 5,000 units SC Q12 [facility] Last Admin: 12/08/18 21:01 Dose: 5,000 units Home Med (Patient's Own Medication) 1 tab PO HS [facility] Last Admin: 12/08/18 21:01 Dose: 1 tab Home Med (Patient's Own Medication) 1 tab PO DAILY [facility] Last Admin: 12/08/18 09:42 Dose: 1 tab Home Med (Vortioxetine Hydrobromide) 10 mg PO DAILY [facility] Hydralazine HCl (Apresoline) 50 mg PO TID [facility] Last Admin: 12/08/18 17:04 Dose: 50 mg Lamotrigine (Lamictal) 100 mg PO DAILY [facility] Last Admin: 12/08/18 09:42 Dose: 100 mg Nebivolol (Bystolic) 5 mg PO DAILY [facility] Last Admin: 12/08/18 09:45 Dose: Not Given Sertraline HCl (Zoloft) 100 mg PO HS [facility] Last Admin: 12/08/18 21:01 Dose: 100 mg - Labs Labs: 12/08/18 07:12 12/08/18 07:12 PT 10.7 SECONDS (9.7-12.2) 12/06/18 21:22 INR 1.0 12/06/18 21:22 APTT 38 SECONDS (21-34) H 12/06/18 21:22 - Constitutional Appears: Non-toxic - Head Exam Head Exam: NORMAL INSPECTION - Eye Exam Eye Exam: absent: Scleral icterus - ENT Exam ENT Exam: Mucous Membranes Moist - Neck Exam Neck Exam: Full ROM - Respiratory Exam Respiratory Exam: NORMAL BREATHING PATTERN - Cardiovascular Exam Cardiovascular Exam: REGULAR RHYTHM - GI/Abdominal Exam GI & Abdominal Exam: Soft - Extremities Exam Extremities Exam: Calf Tenderness Assessment and Plan - Assessment and Plan (Free Text) Assessment: Vertigo Chest pain HTN Plan: Lexiscan Cont meds
[2018-12-09] MEDS: AMLODIPINE PO SCH (10:31)
[2018-12-09] MEDS: OLMESARTAN PO SCH (10:31)
--- NOTE | 2018-12-09 13:45 | EEG ---
DATE: 12/07/2018 This is a 16-channel electroencephalogram of awake and drowsy adult. During the study, photic stimulation was performed. Hyperventilation was not performed. The resting electroencephalogram shows moderate voltage 9-11 Hz, alpha activity seen in the posterior dominant region. The photic stimulation did not evoke driving response noted at 2-20 Hz. Intermittent movement artifact and muscle artifact contaminated the background rhythm. At times, 2-3 Hz delta activity is seen intermittently consistent with early drowsiness. IMPRESSION: This is a normal electroencephalogram of awake and drowsy adult. During the study neither electroencephalographic paroxysmal activities nor focal slowing noted. Misael Pace MD
--- NOTE | 2018-12-09 19:56 | CARD ---
APPROVED REPORT Date of service: 12/09/2018 EXAM: Two-dimensional and M-mode echocardiogram with Doppler and color Doppler. Other Information Quality : GoodRhythm : INDICATION Chest Pain RISK FACTORS Hypertension Hyperlipidemia 2D DIMENSIONS IVSd0.9 (0.7-1.1cm)LVDd4.1 (3.9-5.9cm) PWd0.8 (0.7-1.1cm)LA Tlvqfw12 (18-58mL) LVDs2.3 (2.5-4.0cm)FS (%) 43.6 % LVEF (%)75.2 (>50%)LVEF (Garcia's)67.92 % IVC0.00 cm M-Mode DIMENSIONS RVDd1.92 (2.1-3.2cm)Left Atrium (MM)3.44 (2.5-4.0cm) IVSd1.33 (0.7-1.1cm)Aortic Root2.61 (2.2-3.7cm) LVDd4.49 (4.0-5.6cm)Aortic Cusp Exc.1.90 (1.5-2.0cm) PWd1.24 (0.7-1.1cm)FS (%) 45 % LVDs2.47 (2.0-3.8cm)LVEF (%)76 (>50%) Aortic Valve AI P 1/2 [id number] Mitral Valve MV E Dvurxqxn07.7cm/sMV A Jpmlwjze769.5cm/sE/A ratio0.7 TDI Lateral E' Peak V5.45cm/sMedial E' Peak V4.54cm/sE/Lateral E'14.3 E/Medial E'17.1 Tricuspid Valve TR Peak Pkvdbgbi332fr/sTR Peak Gr.79fcEzKNNW96neDf LEFT VENTRICLE The left ventricle is normal size. There is normal left ventricular wall thickness. The left ventricular function is normal. The left ventricular ejection fraction is within the normal range.68% No regional wall motion abnormalities noted. Transmitral Doppler flow pattern is Grade I-abnormal relaxation pattern. No left ventricle thrombus noted on this study. There is no ventricular septal defect visualized. There is no left ventricular aneurysm. There is no mass noted in the left ventricle. RIGHT VENTRICLE The right ventricle is normal size. There is normal right ventricular wall thickness. The right ventricular systolic function is normal. ATRIA The left atrium size is normal. The right atrium size is normal. The interatrial septum is intact with no evidence for an atrial septal defect. AORTIC VALVE The aortic valve is normal in structure and function. Mild aortic regurgitation is present. There is no aortic valvular stenosis. There is no aortic valvular vegetation. MITRAL VALVE The mitral valve is normal in structure and function. There is no evidence of mitral valve prolapse. There is no mitral valve stenosis. There is mild mitral valve regurgitation noted. TRICUSPID VALVE The tricuspid valve is normal in structure and function. There is mild tricuspid valve regurgitation noted. There is no tricuspid valve prolapse or vegetation. There is no tricuspid valve stenosis. PULMONIC VALVE The pulmonary valve is normal in structure and function. There is no pulmonic valvular regurgitation. There is no pulmonic valvular stenosis. GREAT VESSELS The aortic root is normal in size. The ascending aorta is normal in size. The pulmonary artery is normal. The IVC is normal in size and collapses >50% with inspiration. PERICARDIAL EFFUSION The pericardium appears normal. There is no pleural effusion. <Conclusion> The left ventricular function is normal. Transmitral Doppler flow pattern is Grade I-abnormal relaxation pattern. Mild aortic regurgitation is present.
[2018-12-09] MEDS: FENOFIBRATE 160MG TABLET PO SCH (22:42)
[2018-12-10 00:50] VITALS: TEMP 97.9
[2018-12-10 07:46] VITALS: PULSE 61
[2018-12-10 07:46] LABS: BASO # 0.1 K/uL (0.0-0.2); EOS # 0.4 K/uL (0.0-0.7); HEMOGLOBIN 13.5 g/dL (11.0-16.0); LYMPH # 3.2 K/uL (1.0-4.3); LYMPH % 42.9 % (20.0-40.0); MEAN CELL VOLUME 88.9 fL (81.0-99.0); MEAN CORPUSCULAR HEMOGLOBIN 28.9 pg (27.0-31.0); MEAN CORPUSCULAR HGB CONC 32.5 g/dL (33.0-37.0); MEAN PLATELET VOLUME 7.6 fL (7.2-11.7); MONO # 0.6 K/uL (0.0-0.8); MONO % 7.9 % (0.0-10.0); NEUT # 3.3 K/uL (1.8-7.0); NEUT % 43.2 % (50.0-75.0); NRBC % 0.1 % (0.0-2.0); RBC 4.67 Mil/uL (3.80-5.20); RED CELL DISTRIBUTION WIDTH 13.5 % (11.5-14.5); WHITE BLOOD COUNT 7.6 K/uL (4.8-10.8)
[2018-12-10 07:49] VITALS: BP 111/65; RESP 20; O2SAT 97
[2018-12-10 07:57] LABS: ALB/GLOB RATIO 1.4 (1.0-2.1); ALBUMIN 4.6 g/dL (3.5-5.0); ALT/SGPT 28 U/L (9-52); AST/SGOT 35 U/L (14-36); BLOOD UREA NITROGEN 21 mg/dL (7-17); CALCIUM 9.6 mg/dl (8.6-10.4); GFR NON-AFRICAN AMERICAN > 60
[2018-12-10] MEDS: AMLODIPINE PO SCH (09:30)
[2018-12-10] MEDS: OLMESARTAN PO SCH (09:30)
--- NOTE | 2018-12-10 18:15 | CP.PCM.PN ---
Subjective - Date & Time of Evaluation Date of Evaluation: 12/10/18 Time of Evaluation: 11:00 - Subjective Subjective: alert, oriented , denies sob or chest pains. Objective - Vital Signs/Intake and Output Vital Signs (last 24 hours): Temp Pulse Resp BP Pulse Ox 97.9 F 61 20 111/65 97 12/10/18 07:00 12/10/18 07:46 12/10/18 07:00 12/10/18 07:00 12/10/18 07:00 Intake and Output: 12/10/18 12/10/18 06:59 18:59 Intake Total 120 Balance 120 - Labs Labs: 12/10/18 07:34 12/10/18 07:34 PT 10.7 SECONDS (9.7-12.2) 12/06/18 21:22 INR 1.0 12/06/18 21:22 APTT 38 SECONDS (21-34) H 12/06/18 21:22 Assessment and Plan - Assessment and Plan (Free Text) Assessment: 63 YEAR OLD female admitted with vertigo and chest pain, seen and examined. Alert and orientedx3, still has mild dizzziness. Cleared by neuro, discussed len Vera, plan to discharge home today. Advised to follow up with DR Pace in 1 week, continue with antivert as needed.
--- NOTE | 2018-12-11 12:17 | CARD ---
APPROVED REPORT Date of service: 12/06/2018 EKG Measurement Heart [id number] ID [id number] <Conclusion> Normal sinus rhythm Nonspecific T wave abnormality Abnormal ECG
--- NOTE | 2018-12-12 16:34 | CARD ---
APPROVED REPORT Date of service: 12/09/2018 Protocol: LEXISCAN Test Type: LEXISCAN STRESS Test Indications: CP Medical History: CP Target HR: 158 bpm Resting ECG: NSR Resting Heart Rate: 60 bpm Resting Blood Pressure: 132/80mmHg submaximum (85%): 134 bpm TEST SUMMARY PREINFSNHYPERV.18:[id number]. INFUSIONDOSE 100:[id number]/.0. RUEHNEYIU50:[id number]/76.0. PROCEDURE Pharmacologic stress testing was performed using 0.4mg per 5ml of regadenoson given intravenously over 7-10 seconds. POST EXERCISE Reason for Termination: Protocol Completed Target HR: No Max HR: 61 bpm 57% of Maximum Predicted HR: 158 bpm Exercise duration: 00:30 min:sec, 0 Stage Exercise capacity: 1.0METs Max Blood Pressure: 132/80mmHg Blood Pressure response to exercise: normal resting BP - appropriate response Heart Rate response to exercise: appropriate Chest Pain: No, none Angina index: 0 Arrhythmia: No, none ST Change: Yes, NS ST T CHANGES Deviation: 0 mm INTERPRETATION Stress EKG Conclusion: NEGATIVE LEXISCAN STRESS TEST NORMAL BP RESPONSE TO LEXISCAN NUCLEAR STUDIES TO BE READ SEPARATELY EXAM: Myocardial Perfusion STRESS/REST Imaging Protocol The imaging protocol used to acquire images was Stress Tc-99m/rest Tc-99m 1 day Rest Spect myocardial perfusion imaging was performed in supine position 45 minutes following the injection of 32.7 mCi of Tc-99 Myoview. Gated Stress Spect was performed 45 minutes after intravenous 13.1 mCi Tc-99 Myoview injection. The images were gated to evaluate regional wall motion and calculate ventricular ejection fraction.Images were reconstructed using backfilter projection method in short horizontal and verticle long axis. Spect slices were generated. RESTING DATA EDV66.70khNZ6.80L/min ESV21.00mlMyocardial Vkxg473.00g Av. Heart Rate61.00bpm EF68.00% STRESS DATA EDV68.85hwZU2.60L/min ESV24.00mlMyocardial Vkxn453.00g EF65.00% Regional WT score at stress:2.00 Regional WM score at stress:0.00 Summed WT score at stress:27.00 Av. Heart Rate61.00bpmSummed WM score at stress:12.00 LV Perf. Quant 17 Seg. SSS0.00 17 Seg. SRS0.00 17 Seg. SDS0.00 Stress Defect Extent (% LAD)0.00Rest Defect Extent (% LAD)0.00Rev. Defect Extent (% LAD)0.00 Stress Defect Extent (% LCX)0.00Rest Defect Extent (% LCX)0.00Rev. Defect Extent (% LCX)0.00 Stress Defect Extent (% RCA)0.00Rest Defect Extent (% RCA)0.00Rev. Defect Extent (% RCA)0.00 Stress Defect Extent (% ELINOR)0.00Rest Defect Extent (% ELINOR)0.00Rev. Defect Extent (% ELINOR)0.00 IMPRESSION Normal Myocardial Perfusion exercise stress study Left Ventricle LV Function:Left ventricle systolic function is normal. The Ejection Fraction is >70%. Regional Wall Motion:No regional wall motion abnormalities noted. Metabolism/Perfusion Defects: There is no stress-induced ischemia noted. There are no perfusion/metabolism defects. Conclusion 1. There is no stress-induced ischemia noted. 2. Left ventricle systolic function is normal. 3. The Ejection Fraction is >70%.
== END 2018-12-10 13:50 | disposition home or self-care (01) | DRG 149 ==
LOC: C.ER 20:36 → C.5S 12-07 01:57
PROVIDERS: ADMIT Internal Medicine; ATTEND Internal Medicine
DX: H81.10 Benign paroxysmal vertigo, unspecified ear (principal); I10 Essential (primary) hypertension; E66.3 Overweight; E78.00 Pure hypercholesterolemia, unspecified; E78.5 Hyperlipidemia, unspecified; F32.9 Major depressive disorder, single episode, unspecified; G47.30 Sleep apnea, unspecified; Z72.0 Tobacco use